=== PATIENT | female | born 1985 | race Caucasian/White ===

== ENCOUNTER → 2016-07-25 | Outpatient (CLI) | payer OTHER ==
[~2016-07-25] MED LIST: ACET-1256 PO; ASCO100T4 PO; CHOL100027 PO; LYSI100010 PO; MULT-506 PO; OREGCAP PO; OXYC-57 PO; PRENTAB26 PO; PRLSR20 PO; QUET5TAB PO
[2016-07-25 12:10] LABS: BASO % 0.5 %; BASO ABS # 0.04 K/uL (0-0.2); COMPLETE YES; EOS % 1.3 %; HEMATOCRIT 36.9 % (37-47); IG% 0.3 %; LYMPH % 34.2 %; LYMPH ABS # 2.56 K/uL (1.2-3.4); MEAN CELL VOLUME 80.7 fL (80-100); MEAN CORPUSCULAR HEMOGLOBIN 27.8 pg (25-34); MEAN CORPUSCULAR HGB CONC 34.4 g/dl (32-36); MEAN PLATELET VOLUME 9.9 fL (7.4-10.4); MONO % 7.9 %; NEUT % 55.8 %; PLATELET COUNT 315 K/uL (130-400); RED BLOOD COUNT 4.57 M/uL (4.2-5.4); WHITE BLOOD COUNT 7.49 K/uL (4.8-10.8)
[2016-07-25 12:21] LABS: ALT/SGPT 34 U/L (12-78); AST/SGOT 16 U/L (15-37); BLOOD UREA NITROGEN 9 mg/dl (7-18); BUN/CREATININE RATIO 12.4 (10-20); CALCIUM 8.6 mg/dl (8.5-10.1); CARBON DIOXIDE 28 mmol/L (21-32); CHLORIDE 105 mmol/L (98-107); CHOLESTEROL 225 mg/dl (0-200); CREATININE 0.71 mg/dl (0.60-1.20); GLUCOSE 96 mg/dl (70-99); POTASSIUM 4.2 mmol/L (3.5-5.1); SODIUM 141 mmol/L (136-145); TRIGLYCERIDES 287 mg/dl (0-150); VERY LOW DENSITY LIPOPROT CALC 57 mg/dl
[2016-07-25 12:31] LABS: ALB/GLOB RATIO 1.4 (0.9-2); ALKALINE PHOSPHATASE 71 U/L (45-117); CHOLESTEROL/HDL RATIO 6.6; HDL CHOLESTEROL 34 mg/dl; LDL CHOLESTEROL CALCULATED 134 mg/dl
== END | disposition home or self-care (01) ==
LOC: C.LABBFT 09:43
PROVIDERS: ATTEND Internal Medicine
DX: Z00.00 Encounter for general adult medical examination without abnormal findings (principal); R53.83 Other fatigue; N92.6 Irregular menstruation, unspecified

== ENCOUNTER 2016-11-09 07:38 | Emergency (ER) | payer OTHER ==
[~2016-11-09] VITALS: Ht 157.5 cm; Wt 70.9 kg
[~2016-11-09 07:38] MED LIST changes: -ASCO100T4 PO; -CHOL100027 PO; -LYSI100010 PO; -MULT-506 PO; -OREGCAP PO; -OXYC-57 PO; -PRLSR20 PO
[2016-11-09 07:42] VITALS: TEMP 37.2; Ht 157.5 cm; Wt 70.9 kg
[2016-11-09] MEDS ORDERED: SODIUM CHLORIDE 0.9% 1000ML 1,000 ML IV STA (07:52)
[2016-11-09] MEDS ORDERED: MoRPHine SULFATE 4 MG/ML 1 ML CARP\\VIAL IV STA ×3 (07:52→15:06)
[2016-11-09] MEDS ORDERED: ONDANSETRON INJ 2 MG/ML 2 ML VIAL IV STA (07:52)
--- NOTE | 2016-11-09 07:59 | EMERGENCY ROOM VISIT NOTE ---
History First contact with patient: 07:44 Chief Complaint: ABDOMINAL PAIN Stated Complaint: N/V, SEVERE ABD PAIN History of Present Illness The patient is a 31 year old female who presents to the Emergency Room via private vehicle accompanied by with complaints of "nausea, vomiting, severe abdominal pain". The patient states that around 6:30 AM, she started to feel as though she had to have a bowel movement, and he been taking Colace therefore had a bowel movement that was normal for her, however afterwards developed severe pain in the suprapubic abdominal region that radiates to the inferior quadrants. She rated the pain initially as a 10/10, however it has decreased to a 7/10. She states that she has vomited since the event. She notes last night she did feel a temperature fluctuations, and clammy. She does note that her had diarrhea earlier in the week. No other close contacts with similar symptoms. She denies any history of abdominal surgeries, chance of , chest pain, shortness of breath, blood in the bowel movement, vaginal discharge, vaginal pain or dysuria. Review of Systems A complete 10-point Review of Systems was discussed with the patient, with pertinent positives and negatives listed in the History of Present Illness. All remaining Review of Systems questions can be considered negative unless otherwise specified. Past Medical/Surgical History Medical Problems: (1) Bipolar disorder (2) Bronchitis (3) Thrush Social History Smoking Status: Former Smoker Alcohol Use: occasionally Drug Use: none Marital Status: in relationship Housing Status: lives with significant other Occupation Status: employed Current/Historical Medications Scheduled Ascorbic Acid (Vitamin C), 100 MG PO DIRECTED Cholecalciferol (Vitamin D 1000 Unit), 1,000 INTER.UNIT PO DIRECTED Lysine Hcl (Lysine), 1,000 MG PO DAILY Multivitamin (Multivitamin), 1 TAB PO DAILY Omeprazole (Prilosec), 20 MG PO QAM Oregano (Oil Of Oregano), 1,500 MG PO 3XWK Scheduled PRN Oxycodone/Acetaminophen 5MG/325MG (Percocet 5MG/325MG), 1-2 TABS PO Q6 PRN for Pain Allergies Coded Allergies: Codeine (Verified Allergy, Unknown, /, 09/05/15) Physical Exam Vital Signs Date Time Temp Pulse Resp B/P (MAP) Pulse Ox O2 Delivery O2 Flow Rate FiO2 11/09/16 15:28 83 16 118/83 99 Room Air 11/09/16 14:08 76 20 127/75 98 Room Air 11/09/16 12:02 97 16 110/74 99 Room Air 11/09/16 10:07 97 18 118/78 99 Room Air 11/09/16 07:42 37.2 101 20 135/91 99 Room Air Physical Exam VITAL SIGNS - Vital signs and nursing notes were reviewed. Patient is afebrile , slightly hypertensive at 135/91, tachycardic. 101 bpm, and is saturating well on room air 99%. GENERAL -31-year-old female appearing her stated age who is in no acute distress. Communicates well with provider and answers questions appropriately. SKIN - Without rashes. HEAD - NC/AT. LUNGS - Chest wall symmetric without accessory muscle use, intercostals retractions, or central cyanosis. Normal vesicular breath sounds CTA B/L. No wheezes, rales, or rhonchi appreciated. CARDIAC - RRR with S1/S2. No murmur, rubs, or gallops appreciated. ABDOMEN - Abdominal contour without pulsations or visible masses. BS normoactive all four quadrants. There is tenderness in the suprapubic region and radiates to the quadrants. There is referred tenderness from the upper quadrants to the lower quadrants. No palpable masses, hepatosplenomegaly, or ascites noted. EXTREMITIES - No clubbing or peripheral cyanosis. No pretibial edema present. PELVIC EXAM: The patient's nurse was present to assist with exam, and security operations manager. The patient was educated upon what her pelvic exam was, and she was offered to decline. Patient did not decline. I explained to her the pelvic exam. The patient was prepared and positioned for best examination. Patient was positioned by nurse. The external genitalia, mons pubis, labia majora, labia minora, clitoris, urethral meatus, Bartholin's glands, perineum, and anus were within normal limits. The speculum was held then a 45 angle and properly lubricated, the speculum was inserted without difficulty to the depth of the cervix. Speculum was then open slowly. Cervix was identified. The cervix was within normal limits and did not display any purulent discharge nor was erythematous. The speculum was then closed and removed without difficulty. I then explained to the patient that I was in a perform a bimanual pelvic examination. I then introduced the index finger into the vaginal vault, palpated the cervix and cervical os and noted no abnormalities. The uterine body, apex and fundus were then palpated and were within normal limits, and position. The ovaries were then palpated with my left hand pressing over the lower quadrants of the abdomen and my right index finger pressing in the region of the ovary with no abnormal findings. Discomfort was appreciated suprapubically. Patient did not experience any discomfort. The exam was concluded. Medical Decision & Procedures ER Provider Diagnostic Interpretation: PELVIC COMPLETE NON OB HISTORY: 31 years-old Female Abdominal pain COMPARISON: CT abdomen and pelvis of same day, pelvic ultrasound 09/05/2015 TECHNIQUE: Multiple real-time sonographic images of the deep pelvic structures were obtained transabdominally and transvaginally assessing grayscale appearance, color and spectral flow. FINDINGS: Transabdominal: Anteflexed uterus measures 7.4 x 3.3 x 4.7 cm. Moderate amount of echogenic free fluid is seen within the pelvis. There is a mixed echogenic and hypoechoic lesion superior to the uterus suggesting left ovarian lesion, 5.4 x 4.1 x 5.5 cm. Structure which appears to be the left ovary contiguous with this lesion measures 4.0 x 1.8 x 4.4 cm with peripheral follicles. Arterial inflow and venous outflow was documented to the left ovary. Transvaginal: There are small nabothian cysts present. The endometrium is homogeneous, 0.6 cm. No focal myometrial mass lesion is identified. The right ovary measures 3.2 x 3.6 x 2.0 cm with normal-appearing follicles present. Arterial inflow and venous outflow is present within the right ovary. Large complex echogenicity lesion of the left adnexum is again seen, 4.4 x 4.8 x 4.3 cm. Large amount of complex free pelvic fluid is noted. Arterial inflow and venous outflow is documented within the left ovary. IMPRESSION: 1. Large complex echogenic and cystic lesion of the left adnexum measuring up to 5.5 cm suggests ruptured left ovarian hemorrhagic cyst with moderate amount of associated hemoperitoneum. 2. No evidence of left ovarian torsion. 2. Unremarkable sonographic appearance of the uterus, endometrium and right ovary. The above report was generated using voice recognition software. It may contain grammatical, syntax or spelling errors. Electronically signed by: James Lutz M.D. 11/09/2016 1:07 PM Dictated Date/Time: 11/09/2016 12:51 PM ABD/PELVIS IV AND ORAL CONT HISTORY: 31 years-old Female Suprapubic abdominal pain COMPARISON: CT 10/20/2013 TECHNIQUE: Multiple axial CT images of the abdomen and pelvis were obtained following the intravenous administration of 92 mL Optiray 320. Oral contrast also used. FINDINGS: The imaged lung bases are clear. No pneumoperitoneum is identified. Inferior cardiac chambers are unremarkable. The liver, spleen, gallbladder, pancreas and adrenal glands appear normal. The bilateral kidneys, ureters and urinary bladder are also within normal limits. Uterus and right adnexum appears unremarkable. There is a large mixed attenuating structure with apparent layering hemorrhagic debris, 5.7 x 4.3 x 4.4 cm within the region of the left adnexum/anterior left hemipelvis. There is a considerable amount of blood products seen within the pelvis with trace ascites tracking along the pericolic gutters and perihepatic space. Normal appearing left ovary is not identified. The abdominal aorta is normal in both course and caliber. There is no bulky adenopathy identified. There is no bowel obstruction. Mild to moderate degree of formed stool is present throughout the colon. The appendix is not definitely seen, however no secondary evidence of acute appendicitis. Soft tissues are unremarkable. Bones appear intact. IMPRESSION: 1. Mixed fluid and hemorrhagic attenuating lesion of the left adnexa measuring up to 5.7 cm suggests hemorrhagic cyst with moderate amount of associated hemoperitoneum. Further evaluation with dedicated pelvic ultrasound is recommended to exclude ovarian torsion. 2. Appendix not visualized. No secondary evidence of acute appendicitis. The above report was generated using voice recognition software. It may contain grammatical, syntax or spelling errors. Electronically signed by: James Lutz M.D. 11/09/2016 11:07 AM Dictated Date/Time: 11/09/2016 10:56 AM Laboratory Results 11/09/16 14:43 11/09/16 08:05 Test 11/09/16 08:05 11/09/16 08:52 11/09/16 14:43 Immature Granulocyte % (Auto) 0.1 % White Blood Count 7.36 K/uL (4.8-10.8) Red Blood Count 4.93 M/uL (4.2-5.4) 4.51 M/uL (4.2-5.4) Hemoglobin 13.3 g/dL (12.0-16.0) Hematocrit 39.5 % (37-47) Mean Corpuscular Volume 80.1 fL (80-100) 82.0 fL (80-100) Mean Corpuscular Hemoglobin 27.0 pg (25-34) 27.9 pg (25-34) Mean Corpuscular Hemoglobin Concent 33.7 g/dl (32-36) 34.1 g/dl (32-36) Platelet Count 387 K/uL (130-400) Mean Platelet Volume 10.0 fL (7.4-10.4) 10.0 fL (7.4-10.4) Neutrophils (%) (Auto) 60.0 % Lymphocytes (%) (Auto) 29.9 % Monocytes (%) (Auto) 8.4 % Eosinophils (%) (Auto) 1.2 % Basophils (%) (Auto) 0.4 % Neutrophils # (Auto) 4.41 K/uL (1.4-6.5) Lymphocytes # (Auto) 2.20 K/uL (1.2-3.4) Monocytes # (Auto) 0.62 K/uL (0.11-0.59) Eosinophils # (Auto) 0.09 K/uL (0-0.5) Basophils # (Auto) 0.03 K/uL (0-0.2) Immature Granulocyte # (Auto) 0.01 K/uL (0.00-0.02) Anion Gap 7.0 mmol/L (3-11) Est Creatinine Clear Calc Drug Dose 97.6 ml/min Estimated GFR () 119.2 Estimated GFR (Non- 102.9 BUN/Creatinine Ratio 8.1 (10-20) Calcium Level 8.9 mg/dl (8.5-10.1) Magnesium Level 2.3 mg/dl (1.8-2.4) Total Bilirubin 0.3 mg/dl (0.2-1) Aspartate Amino Transf (AST/SGOT) 23 U/L (15-37) Alanine Aminotransferase (ALT/SGPT) 36 U/L (12-78) Alkaline Phosphatase 69 U/L (45-117) Total Protein 7.9 gm/dl (6.4-8.2) Albumin 4.4 gm/dl (3.4-5.0) Globulin 3.5 gm/dl (2.5-4.0) Albumin/Globulin Ratio 1.3 (0.9-2) Lipase 153 U/L (73-393) Human Chorionic Gonadotropin, Qual NEG (NEG) Urine Color YELLOW Urine Appearance CLEAR (CLEAR) Urine pH 7.5 (4.5-7.5) Urine Specific [place] 1.011 (1.000-1.030) Urine Protein NEG (NEG) Urine Glucose (UA) NEG (NEG) Urine Ketones NEG (NEG) Urine Occult Blood NEG (NEG) Urine Nitrite NEG (NEG) Urine Bilirubin NEG (NEG) Urine Urobilinogen NEG (NEG) Urine Leukocyte Esterase MODERATE (NEG) Urine WBC (Auto) 10-30 /hpf (0-5) Urine RBC (Auto) 0-4 /hpf (0-4) Urine Hyaline Casts (Auto) 0 /lpf (0-5) Urine Epithelial Cells (Auto) 10-20 /lpf (0-5) Urine Bacteria (Auto) NEG (NEG) RDW Standard Deviation 37.0 fL (36.4-46.3) RDW Coefficient of Variation 12.5 % (11.5-14.5) Medications Administered Medications (Trade) Dose Ordered Sig/Scottie Route Start Time Stop Time Status Last Admin Dose Admin Sodium Chloride 1,000 ml @ 999 mls/hr Q1H1M STAT IV 11/09/16 07:52 11/09/16 08:52 DC 11/09/16 07:52 999 MLS/HR Morphine Sulfate (MoRPHine SULFATE INJ) 4 mg NOW STAT IV 11/09/16 07:52 11/09/16 07:55 DC 11/09/16 08:15 4 MG Ondansetron HCl (Zofran Inj) 4 mg NOW STAT IV 11/09/16 07:52 11/09/16 07:55 DC 11/09/16 08:15 4 MG Morphine Sulfate (MoRPHine SULFATE INJ) 4 mg NOW STAT IV 11/09/16 12:46 11/09/16 12:47 DC 11/09/16 12:54 4 MG Morphine Sulfate (MoRPHine SULFATE INJ) 4 mg NOW STAT IV 11/09/16 15:06 11/09/16 15:07 DC 11/09/16 15:28 4 MG Medical Decision Patient was seen and evaluated as above. After obtaining a thorough history and physical examination IV access was initiated and the above workup was performed. Patient presents to us today with abdominal pain since 6:30 AM this morning. The patient apparently felt a sensation as if she had to defecate, after defecating developed severe suprapubic abdominal pain radiating to her bilateral inferior quadrants. She has had no previous abdominal surgeries. Upon presentation her vital signs are stable, she is afebrile and well- appearing. Secondary to the degree of pain subjectively and objectively noted, I believe that a CT scan of the abdomen and pelvis with IV and oral contrast is warranted. She was given 4 g of morphine and 4 mg of Zofran for her pain and nausea. She was given a liter of normal saline. CBC reveals no leukocytosis or anemia. CMP is unremarkable for acute process. Serum is negative. Urine does reveal white blood cells and leukocyte esterase, but there are some epithelial cells. Patient is asymptomatic for urinary complaints therefore I will defer for culture. Patient was given morphine 4 mg 2 then. I spoke with the on-call REPATCHER, Dr. Pinzon I recommended repeating an H&H. This was done and revealed a hemoglobin decrease of 0.7 and a white blood cell increased from 7.36-13.48. Patient was reevaluated and was feeling less pain, and minimal pain at rest. Benefits versus risk of staying in the hospital versus going home was discussed, and the decision was made to discharge the patient home as her vital signs are stable. She is to return with any worsening. I do believe she is stable for outpatient management. The patient is to call to follow-up with the [facility] service. She is to return here if worsening. Patient was thoroughly educated that if she worsens she certainly is to return, as the cyst could continue to bleed. She was educated upon worrisome symptoms which to return, had questions or discharge, and was discharged home in good condition. In evaluation treatment this patient following differential diagnoses were entertained: Hemorrhagic cyst, appendicitis, epiploic appendicitis, diverticulitis, UTI, among others. Patient was informed that she may be called when the urine culture results are in. At that point she may be started on antibiotic. I was notified by the pharmacist at 4:50 PM, that the patient was NOT able to fill the prescription at the [facility] pharmacy on [address], as there was an emergency at that store today. This was confirmed. I canceled the prescription for that pharmacy, and sent to [facility] This is the other [facility] location. Impression Primary Impression: Hemorrhagic cyst of left ovary Departure Information Dispostion Home / Self-Care Condition GOOD Prescriptions Oxycodone/Acetaminophen 5MG/325MG (PERCOCET 5MG/325MG) Tab 1-2 TABS PO Q6 Y for Pain, #20 TAB For Initial Treatment Prov: Tima Andersen PA-C 11/09/16 Referrals No Doctor, Assigned (PCP) Torri Pinzon M.D. Patient Instructions My [facility] Additional Instructions You have been treated in the Emergency Department your Abdominal Pain. Laboratory results and imaging studies have ruled out any emergent causes for your abdominal pain which would warrant admission or surgery. You have been prescribed PERCOCET to be used for pain control. This is a narcotic medication. You cannot drive or consume alcohol while on this medicine. This medicine should only be used for pain that cannot be controlled with [id number] pain medicines. For pain control, you can use the following [id number] medicines (if >12 yo): - Regular strength (325mg/tab) Tylenol (acetaminophen) 2 tabs every 4-6 hours as needed. Do not exceed 12 tablets in a 24 hour period. Avoid taking more than 4 grams (4000 mg) of Tylenol per day. This includes any other sources of acetaminophen you may take on a regular basis. PLEASE NO TYLENOL WITH THE PERCOCET IT ALREADY CONTAINS THIS MEDICATION. - Regular strength (200 mg/tab) Advil (ibuprofen) 1-2 tabs every 4-6 hours as needed. Do not exceed a dose of 3200 mg per day. Drink plenty of water and stay well hydrated. As with any trip to the Emergency Department, you should follow-up with your Primary Care Provider from today's visit. Please follow-up with REPATCH[facility], number has been listed above. Please call them as soon as possible. If you develop lightheadedness, chest pain, shortness of breath, please return immediately. Return to the emergency department if your symptoms persist despite treatment plan outlined above or if the following symptoms occur: increased fevers, chills , worsening nausea/vomiting, blood in your stool or urine. Please return to the emergency department with any new/concerning symptoms.
[2016-11-09] MEDS ORDERED: OPTIRAY 320 IV PRN (08:00)
[2016-11-09] MEDS ORDERED: LYSI100010 PO (08:12)
[2016-11-09] MEDS ORDERED: CHOL100027 PO (08:12)
[2016-11-09] MEDS ORDERED: MULT-506 PO (08:12)
[2016-11-09] MEDS ORDERED: ASCO100T PO (08:12)
[2016-11-09] MEDS ORDERED: OREGCAP PO (08:12)
[2016-11-09] MEDS ORDERED: PRLSR20 PO (08:12)
[2016-11-09 08:21] LABS: BASO % 0.4 %; BASO ABS # 0.03 K/uL (0-0.2); COMPLETE YES; EOS % 1.2 %; HEMATOCRIT 39.5 % (37-47); IG% 0.1 %; LYMPH % 29.9 %; MEAN CELL VOLUME 80.1 fL (80-100); MEAN CORPUSCULAR HGB CONC 33.7 g/dl (32-36); MONO % 8.4 %; PLATELET COUNT 387 K/uL (130-400); RED BLOOD COUNT 4.93 M/uL (4.2-5.4); WHITE BLOOD COUNT 7.36 K/uL (4.8-10.8)
[2016-11-09 08:33] LABS: PREG INTERNAL NEGATIVE QC NEG CLEAR BACKGROUND; PREG INTERNAL POSITIVE QC POS CONTROL LINE
[2016-11-09 08:40] LABS: CREATININE 0.77 mg/dl (0.60-1.20)
[2016-11-09 08:41] LABS: BUN/CREATININE RATIO 8.1 (10-20); CALCIUM 8.9 mg/dl (8.5-10.1); MAGNESIUM 2.3 mg/dl (1.8-2.4); POTASSIUM 3.7 mmol/L (3.5-5.1)
[2016-11-09 08:43] LABS: ALB/GLOB RATIO 1.3 (0.9-2)
[2016-11-09 09:13] LABS: URINE APPEARANCE CLEAR (CLEAR); URINE BILIRUBIN NEG (NEG); URINE COLOR YELLOW; URINE NITRITE NEG (NEG); URINE PH 7.5 (4.5-7.5); URINE SPECIFIC GRAVITY 1.011 (1.000-1.030); UROBILINOGEN NEG (NEG); ZZUR CULT IF INDIC CLEAN CATCH YES
[2016-11-09 09:21] LABS: MANUAL MICROSCOPIC REQUIRED? NO; REVIEW REQ? NO
--- NOTE | 2016-11-09 11:08 | DIAGNOSTIC IMAGING REPORT ---
ABD/PELVIS IV AND ORAL CONT HISTORY: 31 years-old Female Suprapubic abdominal pain COMPARISON: CT 10/20/2013 TECHNIQUE: Multiple axial CT images of the abdomen and pelvis were obtained following the intravenous administration of 92 mL Optiray 320. Oral contrast also used. FINDINGS: The imaged lung bases are clear. No pneumoperitoneum is identified. Inferior cardiac chambers are unremarkable. The liver, spleen, gallbladder, pancreas and adrenal glands appear normal. The bilateral kidneys, ureters and urinary bladder are also within normal limits. Uterus and right adnexum appears unremarkable. There is a large mixed attenuating structure with apparent layering hemorrhagic debris, 5.7 x 4.3 x 4.4 cm within the region of the left adnexum/anterior left hemipelvis. There is a considerable amount of blood products seen within the pelvis with trace ascites tracking along the pericolic gutters and perihepatic space. Normal appearing left ovary is not identified. The abdominal aorta is normal in both course and caliber. There is no bulky adenopathy identified. There is no bowel obstruction. Mild to moderate degree of formed stool is present throughout the colon. The appendix is not definitely seen, however no secondary evidence of acute appendicitis. Soft tissues are unremarkable. Bones appear intact. IMPRESSION: 1. Mixed fluid and hemorrhagic attenuating lesion of the left adnexa measuring up to 5.7 cm suggests hemorrhagic cyst with moderate amount of associated hemoperitoneum. Further evaluation with dedicated pelvic ultrasound is recommended to exclude ovarian torsion. 2. Appendix not visualized. No secondary evidence of acute appendicitis. The above report was generated using voice recognition software. It may contain grammatical, syntax or spelling errors. Electronically signed by: James Lutz M.D. 11/09/2016 11:07 AM Dictated Date/Time: 11/09/2016 10:56 AM
--- NOTE | 2016-11-09 13:08 | DIAGNOSTIC IMAGING REPORT ---
PELVIC COMPLETE NON OB HISTORY: 31 years-old Female Abdominal pain COMPARISON: CT abdomen and pelvis of same day, pelvic ultrasound 09/05/2015 TECHNIQUE: Multiple real-time sonographic images of the deep pelvic structures were obtained transabdominally and transvaginally assessing grayscale appearance, color and spectral flow. FINDINGS: Transabdominal: Anteflexed uterus measures 7.4 x 3.3 x 4.7 cm. Moderate amount of echogenic free fluid is seen within the pelvis. There is a mixed echogenic and hypoechoic lesion superior to the uterus suggesting left ovarian lesion, 5.4 x 4.1 x 5.5 cm. Structure which appears to be the left ovary contiguous with this lesion measures 4.0 x 1.8 x 4.4 cm with peripheral follicles. Arterial inflow and venous outflow was documented to the left ovary. Transvaginal: There are small nabothian cysts present. The endometrium is homogeneous, 0.6 cm. No focal myometrial mass lesion is identified. The right ovary measures 3.2 x 3.6 x 2.0 cm with normal-appearing follicles present. Arterial inflow and venous outflow is present within the right ovary. Large complex echogenicity lesion of the left adnexum is again seen, 4.4 x 4.8 x 4.3 cm. Large amount of complex free pelvic fluid is noted. Arterial inflow and venous outflow is documented within the left ovary. IMPRESSION: 1. Large complex echogenic and cystic lesion of the left adnexum measuring up to 5.5 cm suggests ruptured left ovarian hemorrhagic cyst with moderate amount of associated hemoperitoneum. 2. No evidence of left ovarian torsion. 2. Unremarkable sonographic appearance of the uterus, endometrium and right ovary. The above report was generated using voice recognition software. It may contain grammatical, syntax or spelling errors. Electronically signed by: James Lutz M.D. 11/09/2016 1:07 PM Dictated Date/Time: 11/09/2016 12:51 PM
[2016-11-09 14:53] LABS: MEAN CORPUSCULAR HEMOGLOBIN 27.9 pg (25-34); MEAN CORPUSCULAR HGB CONC 34.1 g/dl (32-36); PLATELET COUNT 311 K/uL (130-400); RED BLOOD COUNT 4.51 M/uL (4.2-5.4); WHITE BLOOD COUNT 13.48 K/uL (4.8-10.8)
[2016-11-09 15:28] VITALS: BP 118/83; PULSE 83; O2SAT 99
[2016-11-09] MEDS ORDERED: OXYC-57 PO ×2 (15:32→16:57)
--- NOTE | 2016-11-09 17:10 | Pharmacy Progress Note ---
ED Pharmacist Progress Note Date of Service: Nov 09, 2016. Patient's called stating they were not able to get the Rx for Percocet filled at the [facility] on [address] because the store was closed today. I did call the [facility] and received confirmation that the pharmacy was in fact closed today due to an emergency. The patient's was requesting the Rx be sent to the [facility] on [address] instead. I contacted the [facility] location ([phone]) and spoke with the [facility] working there, Stew Cruz. He confirmed the other location was closed today. I spoke w/ Tima DELGADO who sent a new Rx for Percocet to the [facility]. I spoke with [facility] Janneth Cruz and requested he confirm the Rx for Percocet sent to the [facility] location is cancelled. He stated he works there tomorrow and would make sure the Rx is cancelled.
== END 2016-11-09 15:56 | disposition home or self-care (01) ==
LOC: C.EDB 07:39 → C.EDA 15:56
DX: N83.202 Unspecified ovarian cyst, left side (principal); F31.9 Bipolar disorder, unspecified; Z87.891 Personal history of nicotine dependence; Z79.899 Other long term (current) drug therapy

== ENCOUNTER 2025-02-06 07:21 | Inpatient (IN) ==
[2025-02-06] MEDS ORDERED: OXYTOCIN 30 UNITS/NSS 30 UNITS/500 ML BAG IV PRN (08:17)
[2025-02-06] MEDS ORDERED: LIDOCAINE 1% LOCAL 20 ML VIAL INFIL PRN (08:17)
[2025-02-06 09:24] LABS: Hematocrit (blood only) 34.6 % (37.0-47.0); Hemoglobin 11.4 g/dl (12.0-16.0); Mean Corpuscular Hemoglobin 27.7 pg (25.0-34.0); Mean Corpuscular Volume 84.0 fL (80.0-100.0); Platelet Count 290 K/uL (130-400); RDW Standard Deviation 39.7 fL (36.4-46.3); Red Blood Count 4.12 M/uL (4.20-5.40); White Blood Count 14.37 K/ul (4.8-10.8)
[2025-02-06] MEDS: LACTATED RINGER'S 1,000 ML IV PRN (11:32)
[2025-02-06] MEDS ORDERED: LIDOCAINE 2% MPF LOCAL 5 ML VIAL EPI PRN (11:50)
[2025-02-06] MEDS ORDERED: NALBUPHINE HCL INJ 10 MG/ML AMP IV PRN (11:50)
[2025-02-06] MEDS ORDERED: BUPIVACAINE 0.25% PF 30 ML VIAL EPI PRN (11:50)
[2025-02-06] MEDS ORDERED: ROPIVACAINE 0.5% PF 5 MG/ML 20 ML VIAL EPI PRN (11:50)
[2025-02-06] MEDS ORDERED: NALOXONE HCL 1 MG in SODIUM CHLORIDE 0.9% 1,000 ML IV PRN (11:50)
[2025-02-06] MEDS ORDERED: NALOXONE HCL 0.4 MG/1 ML VIAL/CARP IV PRN (11:50)
[2025-02-06] MEDS ORDERED: SODIUM CHLORIDE 0.9% PF INJ 10 ML VIAL EPI PRN (11:50)
--- NOTE | 2025-02-06 11:50 | Anesthesiology Consultation ---
Date of Service February 06, 2025 Assessment & Plan ASA ASA2 Proposed Anesthesia Anesthesia Type: Labor Epidural Risk / Benefits Reviewed With: PT / POA / Parent / Guardian, Accepts Plan and Informed Consent Obtained History Height/Weight Height: 5 ft 2 in Weight: 77.564 kg Allergies Allergy/AdvReac Type Severity Reaction Status Date / Time Quinolones AdvReac Mild rash Verified 02/06/25 07:47 Medications Home Medications Medication Instructions Recorded Confirmed Last Taken PNV no.[id number] 1 tab PO DAILY 07/15/24 02/06/25 02/05/25 [ Gummies] magnesium glycinate 350 mg PO DAILY 07/15/24 02/02/25 02/05/25 20:00 acetone (urine) test (Ketone Urine #50 ea 09/25/24 02/02/25 Unknown Test strips) blood sugar diagnostic (OneTouch #100 ea 09/25/24 02/02/25 Unknown Verio test strips) blood-glucose meter (OneTouch #1 ea 09/25/24 02/02/25 Unknown Verio Flex Meter) lancets 33 gauge (OneTouch Delica #100 ea 09/25/24 02/02/25 Unknown Plus Lancet) pen needle, diabetic 32 gauge x #100 ea 11/20/24 02/02/25 Unknown 5/32" Dexcom G7 Sensor (blood-glucose #3 ea 12/14/24 02/02/25 Unknown sensor) docusate sodium 100 mg capsule 100 mg PO DAILY 02/06/25 02/06/25 Unknown (Colace) insulin NPH isoph U-100 human 100 35 unit subcut .at bed time 02/06/25 02/05/25 22:00 unit/mL (3 mL) subcutaneous pen (Novolin N FlexPen) Active Medications Generic Name Dose Route Start Last Admin Trade Name Freq PRN Reason Stop Dose Admin Lactated Ringer's 1,000 mls @ 125 mls/hr 02/06/25 08:17 02/06/25 12:31 Lr IV 02/08/25 08:16 125 mls/hr .Q8H PRN Administration L&D Protocol Protocol Past Medical History Medical History Cold sore last cold sore- last outbreak "couple years" History of hysterosalpingogram 2019 Miscarriage 2015- NO intervention needed History of chicken pox as a child Otitis externa of right ear ADHD (attention deficit hyperactivity disorder) No meds Tricompartment osteoarthritis of left knee Multiple nevi Impaired fasting glucose GERD (gastroesophageal reflux disease) Depression no meds Exercise / Class Metabolic Activity II 4-5 Yardwork/Stairs/Walk up hill Past Family History Family History Mother Breast cancer Diabetes High cholesterol Myeloma Grandmother Colorectal cancer Diabetes Lung cancer Grandfather Myocardial infarction Diabetes Father Prostate cancer Hypertension High cholesterol Aunt Diabetes Denies family history of Ovarian cancer Past Surgical History Surgical History Status post wisdom tooth extraction as teenager History of surgery on arm R humerus History of repair of ACL x2 Past Anesthesia History No Hx of Anesthesia Complications and No Family Hx of Anesthesia Complications History of PONV No Hx of PONV and No Hx of Motion Sickness Social History Smoking Status: Former smoker Do You Dip or Chew Tobacco: No Hx Alcohol Use: No Alcohol type: wine Hx Substance Use: No substance use type: does not use Review of Systems denies fever/cough/ colds/ chest pain/ SOB/ MARIO ALBERTO denies MARIO ALBERTO Physical Exam Vital Signs Last Vital Signs Temp 36.8 C 02/06/25 11:00 Pulse 90 02/06/25 12:58 Resp 18 02/06/25 07:44 BP 115/68 02/06/25 12:55 Pulse Ox 100 02/06/25 12:58 ENMT Mouth: no TMJ abnormality and no dentition abnormality Thyromental Distance: > or= 3.5 Finger Breadths Mallampati Class: II Neck neck extension not limited Respiratory normal respiratory effort; no respiratory distress Auscultation: lungs clear to auscultation bilaterally Cardiovascular Rate/Rhythm: regular rate and regular rhythm Neurologic moves all extremities Psychiatric Orientation: alert and oriented x 3 Testing Laboratory Results 02/06/25 08:59 02/06/25 02/06/25 12:30 08:56 POC Glucose 96 93
[2025-02-06] MEDS: BUPIVACAINE 0.25% PF 30 ML VIAL ONE (12:26)
[2025-02-06] MEDS: LIDOCAINE 2%/EPINEPHRINE 1:200,000 20 ML PF ONE (12:26)
[2025-02-06] MEDS: fentANYL 2 MCG/ML BUPIVacaine 0.125%-NSS 100ML BAG ONE (12:26)
[2025-02-06] MEDS: SODIUM CHLORIDE 0.9% PF INJ 10 ML VIAL ONE (12:46)
[2025-02-06] MEDS: BUPIVACAINE 0.25% PF 30 ML VIAL EPI STA (12:47)
[2025-02-06] MEDS: LIDOCAINE 2%/EPINEPHRINE 1:200,000 20 ML PF EPI STA (12:47)
[2025-02-06] MEDS: SODIUM CHLORIDE 0.9% PF INJ 10 ML VIAL EPI STA (12:47)
--- NOTE | 2025-02-06 13:39 | History & Physical Report ---
Date of Service February 06, 2025 Assessment & Plan (1) 38 weeks gestation of : (2) PROM (premature rupture of membranes): (3) Insulin controlled gestational diabetes mellitus (GDM) during : Plan pt has been admitted. glucose has been checked, plan q2hr in active labor. will need to add pitocin michael if labor pattern not regular, pt agreeable. fhts categ 1. Admission and Anticipated Discharge Date Admission Date: February 06, 2025 History of Present Illness Chief Complaint: prom Primary Care Provider: Cherelle Freitas MD 39yo at term with prom and then early labor, admitted this am by my colleague. She continues with clear fluid leak and ctx q3-5min and did receive epidural. Comfortable now. PNC c/b GDM on insulin, AMA PNL rhpos, ri, gbs neg. OBH: g1 GYNH: nl paps no stds Allergies Allergy/AdvReac Type Severity Reaction Status Date / Time Quinolones AdvReac Mild rash Verified 02/06/25 07:47 Home Medications Medication Instructions Recorded Confirmed Type PNV no.[id number] 1 tab PO DAILY 07/15/24 02/06/25 History [ Gummies] magnesium glycinate 350 mg PO DAILY 07/15/24 02/02/25 History acetone (urine) test (Ketone Urine #50 ea 09/25/24 02/02/25 Rx Test strips) blood sugar diagnostic (OneTouch #100 ea 09/25/24 02/02/25 Rx Verio test strips) blood-glucose meter (OneTouch #1 ea 09/25/24 02/02/25 Rx Verio Flex Meter) lancets 33 gauge (OneTouch Delica #100 ea 09/25/24 02/02/25 Rx Plus Lancet) pen needle, diabetic 32 gauge x #100 ea 11/20/24 02/02/25 Rx 5/32" Dexcom G7 Sensor (blood-glucose #3 ea 12/14/24 02/02/25 Rx sensor) docusate sodium 100 mg capsule 100 mg PO DAILY 02/06/25 02/06/25 History (Colace) insulin NPH isoph U-100 human 100 35 unit subcut .at bed time 02/06/25 History unit/mL (3 mL) subcutaneous pen (Novolin N FlexPen) Patient History Medical History Cold sore last cold sore- last outbreak "couple years" History of hysterosalpingogram 2019 Miscarriage 2015- NO intervention needed History of chicken pox as a child Otitis externa of right ear ADHD (attention deficit hyperactivity disorder) No meds Tricompartment osteoarthritis of left knee Multiple nevi Impaired fasting glucose GERD (gastroesophageal reflux disease) Depression no meds Surgical History Status post wisdom tooth extraction as teenager History of surgery on arm R humerus History of repair of ACL x2 Family History Mother Breast cancer Diabetes High cholesterol Myeloma Grandmother Colorectal cancer Diabetes Lung cancer Grandfather Myocardial infarction Diabetes Father Prostate cancer Hypertension High cholesterol Aunt Diabetes Denies family history of Ovarian cancer Social History (Updated 02/06/25 @ 07:47 by Debbi Haq RN) Smoking Status: Former smoker Tobacco Type: Cigarettes Age Started Using Tobacco: 24; Age Quit Using Tobacco: 31; packs per day: 1; Second Hand Exposure: Yes; Do You Dip or Chew Tobacco: No; Hx Alcohol Use: No Hx Substance Use: No Preferred Language: [place] Citizen Communication Ability: Effective Visual Impairment: Limited Hearing Ability: Normal Plaster Molder Required: No Beliefs That Will Affect Care: None marital status: marital status details: Buster Amin (50) [phone] Current Living Situation: Spouse Current Living Situation Comment: lives with spouse, cats-spouse changing litter current occupational status: employed current occupation: RN [employer] Feels Safe at Home: Yes Safety Concerns: Feels Safe At This Time Childhood Exposure to Second-Hand Smoke: No Diet: low carbohydrate Diet Comment: Athletic caffeine: Yes (Coffee and soda (stops by 1-2pm)) during the past year weight has: remained stable Dental Care, Regularly: No Physical Activity Frequency: Daily Physical Activity Frequency Comment: cyclist, yoga, walking Seatbelt Use: always Sunscreen Use: Yes Assistive Devices: Contacts and Glasses Review of Systems as per Subjective / HPI Physical Exam Constitutional: WD/WN, vitals as above Musculoskeletal: no edema Neurologic: grossly normal Psychiatric: A+Ox3, euthymic affect Genitourinary: Manual OB Exam: + cervical dilation 3 cm, + cervical effacement 80% and + station -1 OB Exam Monitor Tracing: + external FHT monitor used, + external uterine monitor used (q3-5), + category I and + normal FHT variability Results & Data Vital Signs (Past 12 Hours) Vital Signs Temp Pulse Resp BP Pulse Ox 02/06/25 13:33 102 H 100 02/06/25 13:28 95 H 100 02/06/25 13:26 97 H 108/65 02/06/25 13:23 93 H 100 02/06/25 13:18 100 H 100 02/06/25 13:15 18 02/06/25 13:13 93 H 100 02/06/25 13:10 106 H 117/72 02/06/25 13:08 96 H 100 02/06/25 13:04 91 H 112/67 02/06/25 13:03 98 H 100 02/06/25 13:00 18 02/06/25 13:00 98.8 F 93 H 115/67 02/06/25 12:58 90 100 02/06/25 12:55 90 115/68 02/06/25 12:53 99 H 100 02/06/25 12:49 99 H 112/67 02/06/25 12:48 91 H 100 02/06/25 12:45 16 02/06/25 12:44 96 H 115/70 02/06/25 12:43 96 H 100 02/06/25 12:41 85 123/77 02/06/25 12:38 92 H 100 02/06/25 12:34 100 H 118/72 02/06/25 12:33 96 H 100 02/06/25 12:32 91 H 116/70 02/06/25 12:30 18 02/06/25 12:30 102 H 114/67 02/06/25 12:28 100 02/06/25 12:28 93 H 02/06/25 12:28 90 114/65 02/06/25 12:26 88 110/58 L 02/06/25 12:24 97 H 144/60 H 02/06/25 12:23 94 H 100 02/06/25 12:18 91 H 100 02/06/25 12:17 94 H 93 02/06/25 12:13 92 H 100 02/06/25 12:08 87 100 02/06/25 12:03 80 100 02/06/25 12:02 85 126/78 02/06/25 11:58 90 100 02/06/25 11:53 94 H 100 02/06/25 11:48 90 100 02/06/25 11:43 80 100 02/06/25 11:00 98.2 F 02/06/25 09:00 98.4 F 02/06/25 07:44 97.9 F 18 02/06/25 07:34 76 126/83 Coding Level of Care Code None Diagnoses 38 weeks gestation of Z3A.38 PROM (premature rupture of membranes) O42.90 Insulin controlled gestational diabetes mellitus (GDM) during O24.414
[2025-02-06] MEDS: OXYTOCIN 30 UNITS/NSS 30 UNITS/500 ML BAG IV PRN (13:55)
[2025-02-06] MEDS: ONDANSETRON INJ 2 MG/ML 2 ML VIAL IV PRN (18:20)
[2025-02-06] MEDS: fentANYL 2 MCG/ML BUPIVacaine 0.125%-NSS 100ML BAG EPI PRN (19:01)
--- NOTE | 2025-02-06 22:28 | Labor Progress Brief Note ---
Date of Service February 06, 2025 Subjective pt being repositioned by nursing, she was examined by nursing and cx 7-8cm Assessment & Plan (1) 38 weeks gestation of : (2) PROM (premature rupture of membranes): Plan will need to increase pit to keep ctx pattern adequate. some cx change per nurse. fhts categ 1. Admission and Anticipated Discharge Date Admission Date: February 06, 2025 Physical Exam Constitutional: WD/WN, vitals as above Genitourinary: Manual OB Exam: + cervical dilation (7-8 per nurse) OB Exam Monitor Tracing: + external FHT monitor used, + external uterine monitor used (q2-4 pit at 13. ), + category I and + normal FHT variability Results & Data Vital Signs (Past 12 Hours) Vital Signs Temp Pulse Resp BP Pulse Ox 02/06/25 22:23 87 100 02/06/25 22:18 98 H 99 02/06/25 22:16 93 H 106/62 02/06/25 22:13 92 H 98 02/06/25 22:11 85 107/62 02/06/25 22:08 93 H 99 02/06/25 22:06 83 108/62 02/06/25 22:03 86 100 02/06/25 22:01 88 110/66 02/06/25 22:00 16 02/06/25 22:00 16 02/06/25 21:58 90 100 02/06/25 21:57 88 110/66 02/06/25 21:53 86 100 02/06/25 21:50 84 90 02/06/25 21:48 85 100 02/06/25 21:46 92 H 107/60 02/06/25 21:43 92 H 100 02/06/25 21:41 85 110/62 02/06/25 21:38 100 H 100 02/06/25 21:36 113 H 114/63 02/06/25 21:33 107 H 99 02/06/25 21:32 93 H 116/65 02/06/25 21:30 16 02/06/25 21:30 98.6 F 16 02/06/25 21:28 92 H 98 02/06/25 21:26 99 H 114/67 02/06/25 21:23 94 H 97 02/06/25 21:22 89 114/66 02/06/25 21:18 89 98 02/06/25 21:16 89 121/65 02/06/25 21:13 89 98 02/06/25 21:11 85 121/66 02/06/25 21:08 87 99 02/06/25 21:06 88 121/71 02/06/25 21:03 88 98 02/06/25 21:00 86 16 137/78 02/06/25 20:58 91 H 131/79 98 02/06/25 20:56 94 H 132/79 02/06/25 20:54 90 130/70 02/06/25 20:53 93 H 98 02/06/25 20:52 93 H 135/71 02/06/25 20:51 88 134/77 02/06/25 20:48 91 H 97 02/06/25 20:43 90 97 02/06/25 20:40 80 129/73 02/06/25 20:38 85 97 02/06/25 20:33 85 98 02/06/25 20:30 16 02/06/25 20:30 16 02/06/25 20:28 86 99 02/06/25 20:26 85 132/75 02/06/25 20:23 88 98 02/06/25 20:18 99 H 100 02/06/25 20:13 93 H 99 02/06/25 20:11 90 134/74 02/06/25 20:08 89 100 02/06/25 20:03 101 H 100 02/06/25 20:00 16 02/06/25 20:00 16 02/06/25 19:58 88 100 02/06/25 19:56 93 H 115/61 02/06/25 19:53 102 H 100 02/06/25 19:48 89 100 02/06/25 19:43 93 H 99 02/06/25 19:40 90 107/60 02/06/25 19:38 98 H 100 02/06/25 19:33 92 H 100 02/06/25 19:28 89 100 02/06/25 19:26 88 115/57 L 02/06/25 19:23 88 100 02/06/25 19:18 91 H 100 02/06/25 19:15 16 02/06/25 19:15 98.1 F 16 02/06/25 19:13 100 H 100 02/06/25 19:10 92 H 132/73 02/06/25 19:08 96 H 99 02/06/25 19:03 97 H 100 02/06/25 19:00 16 02/06/25 19:00 16 02/06/25 18:58 103 H 100 02/06/25 18:56 95 H 84 L 02/06/25 18:55 90 128/67 02/06/25 18:53 96 H 100 02/06/25 18:48 91 H 100 02/06/25 18:43 95 H 77 L 02/06/25 18:41 91 H 127/66 02/06/25 18:38 92 H 100 02/06/25 18:33 93 H 100 02/06/25 18:31 100 H 90 02/06/25 18:30 16 02/06/25 18:30 16 02/06/25 18:28 92 H 100 02/06/25 18:23 95 H 100 02/06/25 18:18 94 H 100 02/06/25 18:13 90 100 02/06/25 18:08 94 H 100 02/06/25 18:03 87 100 02/06/25 18:00 18 02/06/25 18:00 18 02/06/25 17:58 98 H 100 02/06/25 17:55 94 H 124/70 02/06/25 17:53 94 H 97 02/06/25 17:48 103 H 99 02/06/25 17:43 89 99 02/06/25 17:40 89 127/68 02/06/25 17:38 91 H 99 02/06/25 17:33 96 H 100 02/06/25 17:30 16 02/06/25 17:30 98.6 F 16 02/06/25 17:28 89 100 18 17:27 87 124/71 02/06/25 17:23 93 H 99 18 17:18 92 H 98 02/06/25 17:13 87 98 18 17:10 86 105/57 L 02/06/25 17:08 94 H 99 02/06/25 17:03 85 98 18 17:00 16 02/06/25 17:00 16 02/06/25 16:58 90 99 02/06/25 16:55 96 H 106/58 L 02/06/25 16:53 92 H 99 02/06/25 16:48 88 98 02/06/25 16:43 88 99 02/06/25 16:40 85 102/59 L 02/06/25 16:38 90 98 02/06/25 16:33 92 H 98 02/06/25 16:30 16 02/06/25 16:30 16 02/06/25 16:28 94 H 98 02/06/25 16:25 90 98/53 L 02/06/25 16:23 88 100 02/06/25 16:18 96 H 97 02/06/25 16:13 93 H 98 02/06/25 16:11 93 H 112/55 L 02/06/25 16:08 99 H 99 02/06/25 16:03 98 H 99 02/06/25 16:00 16 02/06/25 16:00 16 02/06/25 15:58 93 H 99 02/06/25 15:55 93 H 109/63 02/06/25 15:53 96 H 99 02/06/25 15:48 94 H 99 02/06/25 15:43 94 H 97 02/06/25 15:38 93 H 100 02/06/25 15:35 16 02/06/25 15:35 98.6 F 16 02/06/25 15:33 106 H 98 02/06/25 15:28 88 99 02/06/25 15:25 90 106/58 L 02/06/25 15:23 88 99 02/06/25 15:18 91 H 100 02/06/25 15:13 84 100 02/06/25 15:10 88 115/59 L 02/06/25 15:08 88 100 02/06/25 15:03 90 99 02/06/25 14:58 92 H 100 02/06/25 14:55 88 110/60 02/06/25 14:53 88 100 02/06/25 14:48 87 100 02/06/25 14:43 95 H 100 02/06/25 14:40 89 108/57 L 02/06/25 14:38 92 H 100 02/06/25 14:33 103 H 100 02/06/25 14:30 20 02/06/25 14:30 20 02/06/25 14:28 91 H 99 02/06/25 14:25 93 H 110/68 02/06/25 14:23 97 H 100 02/06/25 14:18 91 H 99 02/06/25 14:13 93 H 100 02/06/25 14:10 92 H 105/61 02/06/25 14:08 91 H 100 02/06/25 14:03 91 H 100 02/06/25 14:00 18 02/06/25 14:00 18 02/06/25 13:58 93 H 100 02/06/25 13:55 93 H 104/59 L 02/06/25 13:53 96 H 100 02/06/25 13:48 87 99 02/06/25 13:43 91 H 100 02/06/25 13:40 82 90/57 L 02/06/25 13:38 90 100 02/06/25 13:33 102 H 100 02/06/25 13:30 20 02/06/25 13:30 20 02/06/25 13:28 95 H 100 02/06/25 13:26 97 H 108/65 02/06/25 13:23 93 H 100 02/06/25 13:18 100 H 100 02/06/25 13:15 18 02/06/25 13:13 93 H 100 02/06/25 13:10 106 H 117/72 02/06/25 13:08 96 H 100 02/06/25 13:04 91 H 112/67 02/06/25 13:03 98 H 100 02/06/25 13:00 18 02/06/25 13:00 98.8 F 93 H 115/67 02/06/25 12:58 90 100 02/06/25 12:55 90 115/68 02/06/25 12:53 99 H 100 02/06/25 12:49 99 H 112/67 02/06/25 12:48 91 H 100 02/06/25 12:45 16 02/06/25 12:44 96 H 115/70 02/06/25 12:43 96 H 100 02/06/25 12:41 85 123/77 02/06/25 12:38 92 H 100 02/06/25 12:34 100 H 118/72 02/06/25 12:33 96 H 100 02/06/25 12:32 91 H 116/70 02/06/25 12:30 18 02/06/25 12:30 102 H 114/67 02/06/25 12:28 100 02/06/25 12:28 93 H 02/06/25 12:28 90 114/65 02/06/25 12:26 88 110/58 L 02/06/25 12:24 97 H 144/60 H 02/06/25 12:23 94 H 100 02/06/25 12:18 91 H 100 02/06/25 12:17 94 H 93 02/06/25 12:13 92 H 100 02/06/25 12:08 87 100 02/06/25 12:03 80 100 02/06/25 12:02 85 126/78 02/06/25 11:58 90 100 02/06/25 11:53 94 H 100 02/06/25 11:48 90 100 02/06/25 11:43 80 100 02/06/25 11:00 98.2 F Coding Level of Care Code None Diagnoses 38 weeks gestation of Z3A.38 PROM (premature rupture of membranes) O42.90
--- NOTE | 2025-02-07 03:03 | Labor Progress Brief Note ---
Date of Service February 07, 2025 Subjective feeling more pain with ctx. Assessment & Plan (1) 38 weeks gestation of : (2) PROM (premature rupture of membranes): Plan iupc placed due to ? adequate labor pattern with minimal change of cx. fhts categ 1. mvu's appear inadequate, will inc pit max. Admission and Anticipated Discharge Date Admission Date: February 06, 2025 Physical Exam Constitutional: WD/WN, vitals as above Genitourinary: Manual OB Exam: + cervical dilation 8 cm (swollen anterior lip to right), + cervical effacement 100% and + station 0 and + 1 OB Exam Monitor Tracing: + external FHT monitor used, + external uterine monitor used (q3 pit at 20), + intra-uterine pressure catheter used (mvu's will likely be inadequate), + category I and + normal FHT variability Results & Data Vital Signs (Past 12 Hours) Vital Signs Temp Pulse Resp BP Pulse Ox 02/07/25 02:58 90 100 02/07/25 02:53 88 98 02/07/25 02:51 97 H 127/75 02/07/25 02:48 93 H 99 02/07/25 02:43 96 H 98 02/07/25 02:38 93 H 98 02/07/25 02:36 85 124/74 02/07/25 02:33 85 98 02/07/25 02:30 18 02/07/25 02:30 18 02/07/25 02:28 87 97 02/07/25 02:23 88 98 02/07/25 02:22 82 124/71 02/07/25 02:18 91 H 98 02/07/25 02:13 88 99 02/07/25 02:08 92 H 98 02/07/25 02:06 94 H 123/66 02/07/25 02:03 96 H 100 02/07/25 02:00 16 02/07/25 02:00 16 02/07/25 01:58 101 H 99 02/07/25 01:53 99 H 99 02/07/25 01:51 92 H 128/66 02/07/25 01:48 95 H 98 02/07/25 01:43 91 H 97 02/07/25 01:38 95 H 99 02/07/25 01:36 96 H 127/61 02/07/25 01:33 99 H 100 02/07/25 01:30 16 02/07/25 01:30 16 02/07/25 01:28 102 H 97 02/07/25 01:23 94 H 99 02/07/25 01:22 92 H 132/65 02/07/25 01:18 92 H 100 02/07/25 01:13 111 H 100 02/07/25 01:08 90 98 02/07/25 01:07 90 121/72 02/07/25 01:03 96 H 98 02/07/25 01:00 16 02/07/25 01:00 98.6 F 16 02/07/25 00:58 102 H 99 02/07/25 00:53 92 H 99 02/07/25 00:52 94 H 127/68 02/07/25 00:48 98 H 99 02/07/25 00:43 100 H 99 02/07/25 00:38 83 97 02/07/25 00:37 83 98/56 L 02/07/25 00:33 83 95 02/07/25 00:30 16 02/07/25 00:30 16 02/07/25 00:28 85 95 02/07/25 00:23 85 98 02/07/25 00:21 86 109/56 L 02/07/25 00:18 86 97 02/07/25 00:13 82 97 02/07/25 00:08 82 96 02/07/25 00:07 80 100/55 L 02/07/25 00:05 85 94 02/07/25 00:03 83 95 02/07/25 00:00 16 02/07/25 00:00 16 02/06/25 23:58 84 94 02/06/25 23:53 81 95 02/06/25 23:52 81 100/59 L 02/06/25 23:50 91 H 94 02/06/25 23:48 83 95 02/06/25 23:43 80 96 02/06/25 23:38 81 97 02/06/25 23:37 77 104/59 L 02/06/25 23:33 81 96 02/06/25 23:30 16 02/06/25 23:30 16 02/06/25 23:28 79 97 02/06/25 23:23 78 98 02/06/25 23:22 82 104/55 L 02/06/25 23:18 80 96 02/06/25 23:13 82 97 02/06/25 23:08 86 98 02/06/25 23:07 79 97/53 L 02/06/25 23:03 81 98 02/06/25 23:00 16 02/06/25 23:00 98.4 F 16 02/06/25 22:58 81 98 02/06/25 22:53 77 98 02/06/25 22:52 78 98/55 L 02/06/25 22:48 107 H 96 02/06/25 22:43 91 H 97 02/06/25 22:38 90 98 02/06/25 22:36 88 110/66 02/06/25 22:33 89 99 02/06/25 22:30 16 02/06/25 22:30 16 02/06/25 22:28 96 H 99 02/06/25 22:23 87 100 02/06/25 22:18 98 H 99 02/06/25 22:16 93 H 106/62 02/06/25 22:13 92 H 98 02/06/25 22:11 85 107/62 02/06/25 22:08 93 H 99 02/06/25 22:06 83 108/62 02/06/25 22:03 86 100 02/06/25 22:01 88 110/66 02/06/25 22:00 16 02/06/25 22:00 16 02/06/25 21:58 90 100 02/06/25 21:57 88 110/66 02/06/25 21:53 86 100 02/06/25 21:50 84 90 02/06/25 21:48 85 100 02/06/25 21:46 92 H 107/60 02/06/25 21:43 92 H 100 02/06/25 21:41 85 110/62 02/06/25 21:38 100 H 100 02/06/25 21:36 113 H 114/63 02/06/25 21:33 107 H 99 02/06/25 21:32 93 H 116/65 02/06/25 21:30 16 02/06/25 21:30 98.6 F 16 02/06/25 21:28 92 H 98 02/06/25 21:26 99 H 114/67 02/06/25 21:23 94 H 97 02/06/25 21:22 89 114/66 02/06/25 21:18 89 98 02/06/25 21:16 89 121/65 02/06/25 21:13 89 98 02/06/25 21:11 85 121/66 02/06/25 21:08 87 99 02/06/25 21:06 88 121/71 02/06/25 21:03 88 98 02/06/25 21:00 86 16 137/78 02/06/25 20:58 91 H 131/79 98 02/06/25 20:56 94 H 132/79 02/06/25 20:54 90 130/70 02/06/25 20:53 93 H 98 02/06/25 20:52 93 H 135/71 02/06/25 20:51 88 134/77 02/06/25 20:48 91 H 97 02/06/25 20:43 90 97 02/06/25 20:40 80 129/73 02/06/25 20:38 85 97 02/06/25 20:33 85 98 02/06/25 20:30 16 02/06/25 20:30 16 02/06/25 20:28 86 99 02/06/25 20:26 85 132/75 02/06/25 20:23 88 98 02/06/25 20:18 99 H 100 02/06/25 20:13 93 H 99 02/06/25 20:11 90 134/74 02/06/25 20:08 89 100 02/06/25 20:03 101 H 100 02/06/25 20:00 16 02/06/25 20:00 16 02/06/25 19:58 88 100 02/06/25 19:56 93 H 115/61 02/06/25 19:53 102 H 100 02/06/25 19:48 89 100 02/06/25 19:43 93 H 99 02/06/25 19:40 90 107/60 02/06/25 19:38 98 H 100 02/06/25 19:33 92 H 100 02/06/25 19:28 89 100 02/06/25 19:26 88 115/57 L 02/06/25 19:23 88 100 02/06/25 19:18 91 H 100 02/06/25 19:15 16 02/06/25 19:15 98.1 F 16 02/06/25 19:13 100 H 100 02/06/25 19:10 92 H 132/73 02/06/25 19:08 96 H 99 02/06/25 19:03 97 H 100 02/06/25 19:00 16 02/06/25 19:00 16 02/06/25 18:58 103 H 100 02/06/25 18:56 95 H 84 L 02/06/25 18:55 90 128/67 02/06/25 18:53 96 H 100 02/06/25 18:48 91 H 100 02/06/25 18:43 95 H 77 L 02/06/25 18:41 91 H 127/66 02/06/25 18:38 92 H 100 02/06/25 18:33 93 H 100 02/06/25 18:31 100 H 90 02/06/25 18:30 16 02/06/25 18:30 16 02/06/25 18:28 92 H 100 02/06/25 18:23 95 H 100 02/06/25 18:18 94 H 100 02/06/25 18:13 90 100 02/06/25 18:08 94 H 100 02/06/25 18:03 87 100 02/06/25 18:00 18 02/06/25 18:00 18 02/06/25 17:58 98 H 100 02/06/25 17:55 94 H 124/70 02/06/25 17:53 94 H 97 02/06/25 17:48 103 H 99 02/06/25 17:43 89 99 02/06/25 17:40 89 127/68 02/06/25 17:38 91 H 99 02/06/25 17:33 96 H 100 02/06/25 17:30 16 02/06/25 17:30 98.6 F 16 02/06/25 17:28 89 100 18 17:27 87 124/71 02/06/25 17:23 93 H 99 02/06/25 17:18 92 H 98 02/06/25 17:13 87 98 02/06/25 17:10 86 105/57 L 02/06/25 17:08 94 H 99 02/06/25 17:03 85 98 02/06/25 17:00 16 02/06/25 17:00 16 02/06/25 16:58 90 99 02/06/25 16:55 96 H 106/58 L 02/06/25 16:53 92 H 99 02/06/25 16:48 88 98 02/06/25 16:43 88 99 02/06/25 16:40 85 102/59 L 02/06/25 16:38 90 98 02/06/25 16:33 92 H 98 02/06/25 16:30 16 02/06/25 16:30 16 02/06/25 16:28 94 H 98 02/06/25 16:25 90 98/53 L 02/06/25 16:23 88 100 02/06/25 16:18 96 H 97 02/06/25 16:13 93 H 98 02/06/25 16:11 93 H 112/55 L 02/06/25 16:08 99 H 99 02/06/25 16:03 98 H 99 02/06/25 16:00 16 02/06/25 16:00 16 02/06/25 15:58 93 H 99 02/06/25 15:55 93 H 109/63 02/06/25 15:53 96 H 99 02/06/25 15:48 94 H 99 02/06/25 15:43 94 H 97 02/06/25 15:38 93 H 100 02/06/25 15:35 16 02/06/25 15:35 98.6 F 16 02/06/25 15:33 106 H 98 02/06/25 15:28 88 99 02/06/25 15:25 90 106/58 L 02/06/25 15:23 88 99 02/06/25 15:18 91 H 100 02/06/25 15:13 84 100 02/06/25 15:10 88 115/59 L 02/06/25 15:08 88 100 02/06/25 15:03 90 99 Coding Level of Care Code None Diagnoses 38 weeks gestation of Z3A.38 PROM (premature rupture of membranes) O42.90
[2025-02-07] MEDS ORDERED: LIDOCAINE 2%/EPINEPHRINE 1:200,000 20 ML PF ONE ×2 (03:20→13:19)
[2025-02-07] MEDS ORDERED: ROPIVACAINE 0.5% 5 MG/ML 30 ML VIAL ONE (03:20)
--- NOTE | 2025-02-07 03:27 | Anesthesia Procedure Note ---
Date of Service February 07, 2025 Anesthesia Epidural Re-Dose Vital Signs Temp Pulse Resp BP Pulse Ox 36.9 C 95 H 16 128/70 99 02/07/25 03:00 02/07/25 03:23 02/07/25 03:00 02/07/25 03:21 02/07/25 03:23 Notes Pain Intensity: 7 Dilatation (cm): 8.0 Effacement (%): 90 Called by nursing to evaluate epidural as the patient is having increased pain. The epidural was re-dosed with the following medications (all medications via epidural route) after negative aspiration of the epidural catheter for CSF/HEME. 5mll of 2% LIdocaine mixed with 5ml of 0.5% ropivicaine. Pt had received similar dose around 2229 with excellent relief. After Epidural Re-Dose Mental Status: alert / awake / arousable Pain: improving with treatment Airway Patency, RR, SpO2: stable & adequate BP & HR: stable & adequate
[2025-02-07] MEDS ORDERED: ePHEDrine sulfate 50 MG/5 ML SYR ONE (03:43)
[2025-02-07] MEDS: NURSING L&D Epidural Breakthrough Pain Update ONE (08:31)
[2025-02-07] MEDS: diphenhydrAMINE 50 MG/ML VIAL IV PRN (08:40)
[2025-02-07] MEDS ORDERED: BUPIVACAINE 0.25% PF 30 ML VIAL EPI PRN (10:07)
[2025-02-07] MEDS ORDERED: SODIUM CHLORIDE 0.9% PF INJ 10 ML VIAL EPI PRN (10:07)
[2025-02-07] MEDS ORDERED: LIDOCAINE 2% MPF LOCAL 5 ML VIAL EPI PRN (10:07)
[2025-02-07] MEDS ORDERED: ROPIVACAINE 0.5% PF 5 MG/ML 20 ML VIAL EPI PRN (10:07)
--- NOTE | 2025-02-07 10:38 | Labor Progress Brief Note ---
Date of Service February 07, 2025 Subjective pt comfortable. does feel pressure but nothing worse than what she has felt. Assessment & Plan (1) 38 weeks gestation of : (2) PROM (premature rupture of membranes): Plan given no cx change, pit was halved and now re-increasing. fhts categ 1. if achieve pit max again and cx unchanged, i have prepared patient for need for c/s delivery. she denies concerns. position change being utilized and pt is comfortable. bsg has been followed. reviewed with partner the plan, separately as he was not in room at the time, he asks about cervidil and reviewed indications for use of such and not indicated in pt scenario. Admission and Anticipated Discharge Date Admission Date: February 06, 2025 Physical Exam Constitutional: WD/WN, vitals as above Genitourinary: OB Exam Monitor Tracing: + external FHT monitor used, + intra- uterine pressure catheter used (iupc tracing but inadequate mvus, pit at 21), + category I and + normal FHT variability Results & Data Vital Signs (Past 12 Hours) Vital Signs Temp Pulse Resp BP Pulse Ox 02/07/25 10:33 88 99 02/07/25 10:28 86 100 02/07/25 10:27 93 H 137/80 02/07/25 10:23 100 H 100 02/07/25 10:18 90 100 02/07/25 10:13 100 02/07/25 10:13 93 H 02/07/25 10:13 104 H 137/81 02/07/25 10:08 88 100 02/07/25 10:03 83 100 02/07/25 10:00 20 02/07/25 10:00 20 02/07/25 09:58 100 02/07/25 09:58 84 02/07/25 09:58 86 128/77 02/07/25 09:53 85 100 02/07/25 09:48 95 H 100 02/07/25 09:43 100 02/07/25 09:43 91 H 02/07/25 09:43 99 H 117/64 02/07/25 09:38 85 99 02/07/25 09:33 86 100 02/07/25 09:30 20 02/07/25 09:30 20 02/07/25 09:28 92 H 100 02/07/25 09:27 89 112/62 02/07/25 09:23 95 H 100 02/07/25 09:18 86 100 02/07/25 09:13 96 H 100 02/07/25 09:12 85 114/60 02/07/25 09:08 98 H 100 02/07/25 09:03 92 H 100 02/07/25 09:00 98.4 F 18 02/07/25 08:59 96 H 130/68 02/07/25 08:58 95 H 100 02/07/25 08:53 95 H 100 02/07/25 08:48 100 H 100 02/07/25 08:43 104 H 100 02/07/25 08:38 98 H 99 02/07/25 08:33 94 H 98 02/07/25 08:30 20 02/07/25 08:28 100 H 100 02/07/25 08:27 97 H 137/81 02/07/25 08:23 101 H 99 02/07/25 08:18 102 H 99 02/07/25 08:13 98 H 136/77 97 02/07/25 08:08 94 H 98 02/07/25 08:03 93 H 98 02/07/25 08:00 16 02/07/25 07:58 92 H 98 02/07/25 07:57 88 131/76 02/07/25 07:53 91 H 98 02/07/25 07:48 98 H 99 02/07/25 07:43 91 H 143/75 H 99 02/07/25 07:38 91 H 98 02/07/25 07:33 92 H 98 02/07/25 07:30 18 02/07/25 07:28 98 02/07/25 07:28 87 02/07/25 07:28 89 141/80 H 02/07/25 07:23 88 98 02/07/25 07:18 94 H 99 02/07/25 07:13 112 H 108/61 99 02/07/25 07:08 94 H 98 02/07/25 07:03 104 H 100 02/07/25 07:00 98.4 F 20 02/07/25 07:00 18 02/07/25 07:00 18 02/07/25 06:58 97 H 143/75 H 99 02/07/25 06:57 95 H 140/71 02/07/25 06:53 89 99 02/07/25 06:48 90 98 02/07/25 06:44 88 137/74 02/07/25 06:43 89 98 02/07/25 06:38 88 98 02/07/25 06:33 90 97 02/07/25 06:30 18 02/07/25 06:30 18 02/07/25 06:28 89 97 02/07/25 06:27 85 121/61 02/07/25 06:23 85 98 02/07/25 06:18 83 97 02/07/25 06:13 85 97 02/07/25 06:12 83 117/61 02/07/25 06:08 84 97 02/07/25 06:03 85 97 02/07/25 06:00 16 02/07/25 06:00 16 02/07/25 05:58 80 98 02/07/25 05:57 80 104/59 L 02/07/25 05:53 81 98 02/07/25 05:48 84 99 02/07/25 05:43 86 100 02/07/25 05:42 81 101/60 02/07/25 05:38 105 H 100 02/07/25 05:33 94 H 99 02/07/25 05:30 18 02/07/25 05:30 18 02/07/25 05:28 101 H 96 02/07/25 05:27 89 118/64 02/07/25 05:23 90 98 02/07/25 05:18 88 97 02/07/25 05:13 87 97 02/07/25 05:12 86 114/59 L 02/07/25 05:08 85 98 02/07/25 05:03 85 98 02/07/25 04:58 88 99 02/07/25 04:57 102 H 111/58 L 02/07/25 04:53 83 97 02/07/25 04:48 87 97 02/07/25 04:43 97 02/07/25 04:43 85 02/07/25 04:43 86 112/67 02/07/25 04:42 101 H 113/67 02/07/25 04:38 89 97 02/07/25 04:33 89 96 02/07/25 04:28 86 96 02/07/25 04:27 85 108/55 L 02/07/25 04:23 87 97 02/07/25 04:18 88 97 02/07/25 04:13 88 97 02/07/25 04:10 83 108/58 L 02/07/25 04:08 78 109/58 L 98 02/07/25 04:06 84 107/57 L 02/07/25 04:04 82 108/58 L 02/07/25 04:03 84 100 02/07/25 04:02 87 107/56 L 02/07/25 04:01 92 H 102/53 L 02/07/25 04:00 16 02/07/25 04:00 16 02/07/25 03:58 86 107/56 L 100 02/07/25 03:56 90 108/56 L 02/07/25 03:54 94 H 107/58 L 02/07/25 03:53 91 H 100 02/07/25 03:52 86 104/56 L 02/07/25 03:50 86 16 103/56 L 02/07/25 03:48 91 H 101/58 L 100 02/07/25 03:46 76 92/54 L 02/07/25 03:45 71 86/46 L 02/07/25 03:43 100 02/07/25 03:43 75 02/07/25 03:43 73 86/39 L 02/07/25 03:41 78 95/46 L 02/07/25 03:38 103 H 84/50 L 99 02/07/25 03:37 92 H 87/50 L 02/07/25 03:34 95 H 105/57 L 02/07/25 03:33 95 H 99 02/07/25 03:32 99 H 111/61 02/07/25 03:30 92 H 18 113/65 02/07/25 03:28 94 H 110/64 99 02/07/25 03:26 96 H 120/70 02/07/25 03:25 92 H 121/73 02/07/25 03:23 95 H 99 02/07/25 03:21 93 H 128/70 02/07/25 03:18 89 99 02/07/25 03:13 88 99 02/07/25 03:08 88 99 02/07/25 03:07 93 H 143/73 H 02/07/25 03:03 94 H 99 02/07/25 03:00 16 02/07/25 03:00 98.4 F 16 02/07/25 02:58 90 100 02/07/25 02:53 88 98 02/07/25 02:51 97 H 127/75 02/07/25 02:48 93 H 99 02/07/25 02:43 96 H 98 02/07/25 02:38 93 H 98 02/07/25 02:36 85 124/74 02/07/25 02:33 85 98 02/07/25 02:30 18 02/07/25 02:30 18 02/07/25 02:28 87 97 02/07/25 02:23 88 98 02/07/25 02:22 82 124/71 02/07/25 02:18 91 H 98 02/07/25 02:13 88 99 02/07/25 02:08 92 H 98 02/07/25 02:06 94 H 123/66 02/07/25 02:03 96 H 100 02/07/25 02:00 16 02/07/25 02:00 16 02/07/25 01:58 101 H 99 02/07/25 01:53 99 H 99 02/07/25 01:51 92 H 128/66 02/07/25 01:48 95 H 98 02/07/25 01:43 91 H 97 02/07/25 01:38 95 H 99 02/07/25 01:36 96 H 127/61 02/07/25 01:33 99 H 100 02/07/25 01:30 16 02/07/25 01:30 16 02/07/25 01:28 102 H 97 02/07/25 01:23 94 H 99 02/07/25 01:22 92 H 132/65 02/07/25 01:18 92 H 100 02/07/25 01:13 111 H 100 02/07/25 01:08 90 98 02/07/25 01:07 90 121/72 02/07/25 01:03 96 H 98 02/07/25 01:00 16 02/07/25 01:00 98.6 F 16 02/07/25 00:58 102 H 99 02/07/25 00:53 92 H 99 02/07/25 00:52 94 H 127/68 02/07/25 00:48 98 H 99 02/07/25 00:43 100 H 99 02/07/25 00:38 83 97 02/07/25 00:37 83 98/56 L 02/07/25 00:33 83 95 02/07/25 00:30 16 02/07/25 00:30 16 02/07/25 00:28 85 95 02/07/25 00:23 85 98 02/07/25 00:21 86 109/56 L 02/07/25 00:18 86 97 02/07/25 00:13 82 97 02/07/25 00:08 82 96 02/07/25 00:07 80 100/55 L 02/07/25 00:05 85 94 02/07/25 00:03 83 95 02/07/25 00:00 16 02/07/25 00:00 16 02/06/25 23:58 84 94 02/06/25 23:53 81 95 02/06/25 23:52 81 100/59 L 02/06/25 23:50 91 H 94 02/06/25 23:48 83 95 02/06/25 23:43 80 96 02/06/25 23:38 81 97 02/06/25 23:37 77 104/59 L 02/06/25 23:33 81 96 02/06/25 23:30 16 02/06/25 23:30 16 02/06/25 23:28 79 97 02/06/25 23:23 78 98 02/06/25 23:22 82 104/55 L 02/06/25 23:18 80 96 02/06/25 23:13 82 97 02/06/25 23:08 86 98 02/06/25 23:07 79 97/53 L 02/06/25 23:03 81 98 02/06/25 23:00 16 02/06/25 23:00 98.4 F 16 02/06/25 22:58 81 98 02/06/25 22:53 77 98 02/06/25 22:52 78 98/55 L 02/06/25 22:48 107 H 96 02/06/25 22:43 91 H 97 02/06/25 22:38 90 98 02/06/25 22:36 88 110/66 Coding Level of Care Code None Diagnoses 38 weeks gestation of Z3A.38 PROM (premature rupture of membranes) O42.90
[2025-02-07] MEDS ORDERED: fentANYL 2 MCG/ML BUPIVacaine 0.125%-NSS 100ML BAG EPI PRN (11:49)
[2025-02-07] MEDS ORDERED: NALOXONE HCL 1 MG in SODIUM CHLORIDE 0.9% 1,000 ML IV PRN ×2 (11:49→17:35)
[2025-02-07] MEDS ORDERED: NALBUPHINE HCL INJ 10 MG/ML AMP IV PRN ×2 (11:49→17:35)
[2025-02-07] MEDS ORDERED: ONDANSETRON INJ 2 MG/ML 2 ML VIAL IV PRN ×2 (11:49→17:35)
[2025-02-07] MEDS ORDERED: diphenhydrAMINE 50 MG/ML VIAL IV PRN ×2 (11:49→17:35)
[2025-02-07] MEDS ORDERED: NALOXONE HCL 0.4 MG/1 ML VIAL/CARP IV PRN ×2 (11:49→17:35)
--- NOTE | 2025-02-07 12:58 | Labor Progress Brief Note ---
Date of Service February 07, 2025 Subjective pt comfortable. Assessment & Plan (1) 38 weeks gestation of : (2) PROM (premature rupture of membranes): Plan still no cervical change. we have now used pit to 30 twice, second time now after halving pit. cx remains unchanged. never achieved adequate mvu's and thick anterior lip. rec proceeding with c/s for ftp. pt and partner agreeable. consent reviewed and signed. anesth and nursing aware. peds has been notified. fhts are categ 1. Admission and Anticipated Discharge Date Admission Date: February 06, 2025 Physical Exam Constitutional: WD/WN, vitals as above Genitourinary: Manual OB Exam: + cervical dilation (8), + cervical effacement (thick anterior lip) 100% and + station 0 OB Exam Monitor Tracing: + external FHT monitor used, + intra-uterine pressure catheter used (mvu's inadequate, pit at 30 at least for 30min), + category I and + normal FHT variability Results & Data Vital Signs (Past 12 Hours) Vital Signs Temp Pulse Resp BP Pulse Ox 02/07/25 12:54 98 H 99 02/07/25 12:48 100 H 98 02/07/25 12:43 98 H 110/65 98 02/07/25 12:38 96 H 97 02/07/25 12:33 96 H 98 02/07/25 12:30 20 02/07/25 12:30 20 02/07/25 12:28 95 H 98 02/07/25 12:27 100 H 115/68 02/07/25 12:23 95 H 98 02/07/25 12:18 100 H 97 02/07/25 12:13 98 02/07/25 12:13 95 H 02/07/25 12:13 96 H 110/68 02/07/25 12:08 93 H 98 02/07/25 12:03 95 H 98 02/07/25 12:00 16 02/07/25 12:00 16 02/07/25 11:58 99 H 99 02/07/25 11:57 97 H 113/68 02/07/25 11:53 95 H 97 02/07/25 11:48 95 H 99 02/07/25 11:43 95 H 115/73 98 02/07/25 11:38 98 H 97 02/07/25 11:33 94 H 98 02/07/25 11:30 20 02/07/25 11:30 20 02/07/25 11:28 91 H 99 02/07/25 11:27 93 H 113/72 02/07/25 11:23 91 H 99 02/07/25 11:18 95 H 99 02/07/25 11:13 90 100 02/07/25 11:12 94 H 128/76 02/07/25 11:08 94 H 99 02/07/25 11:03 97 H 100 02/07/25 11:00 20 02/07/25 11:00 98.6 F 20 02/07/25 10:58 100 02/07/25 10:58 99 H 02/07/25 10:58 93 H 134/76 02/07/25 10:53 87 99 02/07/25 10:48 82 99 02/07/25 10:43 97 H 113/67 100 02/07/25 10:38 91 H 100 02/07/25 10:33 88 99 02/07/25 10:30 18 02/07/25 10:30 18 02/07/25 10:28 86 100 02/07/25 10:27 93 H 137/80 02/07/25 10:23 100 H 100 02/07/25 10:18 90 100 02/07/25 10:13 100 02/07/25 10:13 93 H 02/07/25 10:13 104 H 137/81 02/07/25 10:08 88 100 02/07/25 10:03 83 100 02/07/25 10:00 20 02/07/25 10:00 20 02/07/25 09:58 100 02/07/25 09:58 84 02/07/25 09:58 86 128/77 02/07/25 09:53 85 100 02/07/25 09:48 95 H 100 02/07/25 09:43 100 02/07/25 09:43 91 H 02/07/25 09:43 99 H 117/64 02/07/25 09:38 85 99 02/07/25 09:33 86 100 02/07/25 09:30 20 02/07/25 09:30 20 02/07/25 09:28 92 H 100 02/07/25 09:27 89 112/62 02/07/25 09:23 95 H 100 02/07/25 09:18 86 100 02/07/25 09:13 96 H 100 02/07/25 09:12 85 114/60 02/07/25 09:08 98 H 100 02/07/25 09:03 92 H 100 02/07/25 09:00 98.4 F 18 02/07/25 08:59 96 H 130/68 02/07/25 08:58 95 H 100 02/07/25 08:53 95 H 100 02/07/25 08:48 100 H 100 02/07/25 08:43 104 H 100 02/07/25 08:38 98 H 99 02/07/25 08:33 94 H 98 02/07/25 08:30 20 02/07/25 08:28 100 H 100 02/07/25 08:27 97 H 137/81 02/07/25 08:23 101 H 99 02/07/25 08:18 102 H 99 02/07/25 08:13 98 H 136/77 97 02/07/25 08:08 94 H 98 02/07/25 08:03 93 H 98 02/07/25 08:00 16 02/07/25 07:58 92 H 98 02/07/25 07:57 88 131/76 02/07/25 07:53 91 H 98 02/07/25 07:48 98 H 99 02/07/25 07:43 91 H 143/75 H 99 02/07/25 07:38 91 H 98 02/07/25 07:33 92 H 98 02/07/25 07:30 18 02/07/25 07:28 98 02/07/25 07:28 87 02/07/25 07:28 89 141/80 H 02/07/25 07:23 88 98 02/07/25 07:18 94 H 99 02/07/25 07:13 112 H 108/61 99 02/07/25 07:08 94 H 98 02/07/25 07:03 104 H 100 02/07/25 07:00 98.4 F 20 02/07/25 07:00 18 02/07/25 07:00 18 02/07/25 06:58 97 H 143/75 H 99 02/07/25 06:57 95 H 140/71 02/07/25 06:53 89 99 02/07/25 06:48 90 98 02/07/25 06:44 88 137/74 02/07/25 06:43 89 98 02/07/25 06:38 88 98 02/07/25 06:33 90 97 02/07/25 06:30 18 02/07/25 06:30 18 02/07/25 06:28 89 97 02/07/25 06:27 85 121/61 02/07/25 06:23 85 98 02/07/25 06:18 83 97 02/07/25 06:13 85 97 02/07/25 06:12 83 117/61 02/07/25 06:08 84 97 02/07/25 06:03 85 97 02/07/25 06:00 16 02/07/25 06:00 16 02/07/25 05:58 80 98 02/07/25 05:57 80 104/59 L 02/07/25 05:53 81 98 02/07/25 05:48 84 99 02/07/25 05:43 86 100 02/07/25 05:42 81 101/60 02/07/25 05:38 105 H 100 02/07/25 05:33 94 H 99 02/07/25 05:30 18 02/07/25 05:30 18 02/07/25 05:28 101 H 96 02/07/25 05:27 89 118/64 02/07/25 05:23 90 98 02/07/25 05:18 88 97 02/07/25 05:13 87 97 02/07/25 05:12 86 114/59 L 02/07/25 05:08 85 98 02/07/25 05:03 85 98 02/07/25 04:58 88 99 02/07/25 04:57 102 H 111/58 L 02/07/25 04:53 83 97 02/07/25 04:48 87 97 02/07/25 04:43 97 02/07/25 04:43 85 02/07/25 04:43 86 112/67 02/07/25 04:42 101 H 113/67 02/07/25 04:38 89 97 02/07/25 04:33 89 96 02/07/25 04:28 86 96 02/07/25 04:27 85 108/55 L 02/07/25 04:23 87 97 02/07/25 04:18 88 97 02/07/25 04:13 88 97 02/07/25 04:10 83 108/58 L 02/07/25 04:08 78 109/58 L 98 02/07/25 04:06 84 107/57 L 02/07/25 04:04 82 108/58 L 02/07/25 04:03 84 100 02/07/25 04:02 87 107/56 L 02/07/25 04:01 92 H 102/53 L 02/07/25 04:00 16 02/07/25 04:00 16 02/07/25 03:58 86 107/56 L 100 02/07/25 03:56 90 108/56 L 02/07/25 03:54 94 H 107/58 L 02/07/25 03:53 91 H 100 02/07/25 03:52 86 104/56 L 02/07/25 03:50 86 16 103/56 L 02/07/25 03:48 91 H 101/58 L 100 02/07/25 03:46 76 92/54 L 02/07/25 03:45 71 86/46 L 02/07/25 03:43 100 02/07/25 03:43 75 02/07/25 03:43 73 86/39 L 02/07/25 03:41 78 95/46 L 02/07/25 03:38 103 H 84/50 L 99 02/07/25 03:37 92 H 87/50 L 02/07/25 03:34 95 H 105/57 L 02/07/25 03:33 95 H 99 02/07/25 03:32 99 H 111/61 02/07/25 03:30 92 H 18 113/65 02/07/25 03:28 94 H 110/64 99 02/07/25 03:26 96 H 120/70 02/07/25 03:25 92 H 121/73 02/07/25 03:23 95 H 99 02/07/25 03:21 93 H 128/70 02/07/25 03:18 89 99 02/07/25 03:13 88 99 02/07/25 03:08 88 99 02/07/25 03:07 93 H 143/73 H 02/07/25 03:03 94 H 99 02/07/25 03:00 16 02/07/25 03:00 98.4 F 16 02/07/25 02:58 90 100 02/07/25 02:53 88 98 02/07/25 02:51 97 H 127/75 02/07/25 02:48 93 H 99 02/07/25 02:43 96 H 98 02/07/25 02:38 93 H 98 02/07/25 02:36 85 124/74 02/07/25 02:33 85 98 02/07/25 02:30 18 02/07/25 02:30 18 02/07/25 02:28 87 97 02/07/25 02:23 88 98 02/07/25 02:22 82 124/71 02/07/25 02:18 91 H 98 02/07/25 02:13 88 99 02/07/25 02:08 92 H 98 02/07/25 02:06 94 H 123/66 02/07/25 02:03 96 H 100 02/07/25 02:00 16 02/07/25 02:00 16 02/07/25 01:58 101 H 99 02/07/25 01:53 99 H 99 02/07/25 01:51 92 H 128/66 02/07/25 01:48 95 H 98 02/07/25 01:43 91 H 97 02/07/25 01:38 95 H 99 02/07/25 01:36 96 H 127/61 02/07/25 01:33 99 H 100 02/07/25 01:30 16 02/07/25 01:30 16 02/07/25 01:28 102 H 97 02/07/25 01:23 94 H 99 02/07/25 01:22 92 H 132/65 02/07/25 01:18 92 H 100 02/07/25 01:13 111 H 100 02/07/25 01:08 90 98 02/07/25 01:07 90 121/72 02/07/25 01:03 96 H 98 02/07/25 01:00 16 02/07/25 01:00 98.6 F 16 02/07/25 00:58 102 H 99 Coding Level of Care Code None Diagnoses 38 weeks gestation of Z3A.38 PROM (premature rupture of membranes) O42.90
[2025-02-07] MEDS: CITRIC ACID/SODIUM CITRATE 15 ML UDC ONE (13:07)
[2025-02-07] MEDS: ACETAMINOPHEN 500 MG TAB ONE (13:07)
[2025-02-07] MEDS: CITRIC ACID/SODIUM CITRATE 15 ML UDC PO SCH (13:17)
[2025-02-07] MEDS: ACETAMINOPHEN 500 MG TAB PO SCH (13:17)
[2025-02-07] MEDS ORDERED: PHENYLEPHRINE HCL 25 MG/250 ML NSS IV ONE (13:19)
[2025-02-07] MEDS ORDERED: MoRPHine SULFATE PF 1 MG/ML 10 ML AMP/VIAL ONE (13:19)
[2025-02-07] MEDS ORDERED: DEXAMETHASONE SOD INJ 4 MG/ML VIAL ONE (13:19)
[2025-02-07] MEDS ORDERED: ONDANSETRON INJ 2 MG/ML 2 ML VIAL ONE (13:19)
[2025-02-07] MEDS ORDERED: OXYTOCIN 10 UNITS/ML VIAL ONE ×3 (13:22→14:11)
[2025-02-07] MEDS: AZITHROMYCIN 500 MG/255 ML BAG IV SCH (13:23)
--- NOTE | 2025-02-07 14:21 | Operative Report ---
Post Operative Report Pre & Post Diagnosis Operation Date: 02/07/25 13:10 <No data on this case meets the specified criteria> 38 weeks iup Prom Failure to progress I identified the patient and participated in the time-out.: Yes Procedure Operation Date: 02/07/25 13:10 <No data on this case meets the specified criteria> Primary Low Transverse Section Surgeon Sabi Ventura MD, FACOG [employer] RN Quantitative Blood Loss (QBL) 360 Findings Consistent with Post-Op Diagnosis (viable , apgars 8,9. Normal uterus tubes and ovaries bilaterally) Fluids 1200cc Specimens cord blood Drains martinez Anesthesia Type Labor Epidural Complications none Disposition Accompanied Patient To Recovery: No Disposition: L&D Indications 39yo with cc of prom at 38wks, pitocin augmentation and failure to progress in labor for planned c/s. Description of Procedure The patient was taken to the operating room and identified. After adequate anesthesia was obtained, she was placed in the supine position with a leftward tilt on the operating table and prepped and draped in the usual sterile fashion. A martinez catheter had already been placed. The knife was used to create a Pfannensteil skin incision that was carried down to the underlying layer of fascia. The fascia was nicked in the midline and this opening was extended laterally using Parker scissors. Jono clamps were placed on the superior and inferior aspect of the fascial incision tenting it upward and the underlying rectus muscles were dissected off the overlying fascia both sharply and bluntly using Parker scissors. The rectus muscles were bluntly in the midline. The peritoneal cavity was bluntly entered into. This opening was stretched. The bladder blade was placed. The vesicouterine peritoneum was elevated and opened up into and the bladder flap was created digitally and bladder blade was replaced. The knife was used to create a hysterotomy and this opening was stretched. The operators hand was placed through the hysterotomy and the bladder blade was removed. The head was elevated and flexed and with fundal pressure the head was delivered. The shoulders and body were rapidly delivered. The cord was clamped and cut and the 's mouth and nares were bulb suction. The was handed off to the awaiting pediatricians. Cord blood was obtained. The placenta was manually expressed. The uterus was exteriorized and cleared of all clots and debris. Dilute IV Pitocin was begun. The uterine tone was improving. The hysterotomy was closed in a running interlocking fashion using 0 Vicryl followed by a second imbricating layer of 0 Vicryl. The hysterotomy was hemostatic. The pelvis was irrigated. The uterus was returned to the abdomen. The gutters were cleared of all clots and debris. The hysterotomy was reinspected and bleeding site was noted on left aspect, stitched with figure of eight suture of 3-0 vicryl and noted to be hemostatic. The fascia was then closed in running fashion using 0 Vicryl. The subcutaneous fat was copiously irrigated and reapproximated using 2-0 chromic. The skin was closed in a subcuticular fashion using 4-0 monocryl. At this point the procedure was terminated. The patient was transferred to the recovery room in stable condition. All sponge, lap and needle counts are correct x2. I attest to the content of the Intraoperative Record and any orders documented therein. Any exceptions are noted below. OB Procedure Charges 74658
--- NOTE | 2025-02-07 14:31 | Anesthesia Procedure Note ---
Date of Service February 07, 2025 Anesthesia Post Epidural Note Vital Signs Vital Signs: Temp Pulse Resp BP Pulse Ox 37.0 C 92 H 20 165/62 H 98 02/07/25 11:00 02/07/25 14:28 02/07/25 12:30 02/07/25 14:28 02/07/25 14:28 Pain Intensity Lower Back: Pain Intensity: 0 Notes Mental Status: alert / awake / arousable and participated in evaluation Nausea / Vomiting: adequately controlled Pain: adequately controlled Airway Patency, RR, SpO2: stable & adequate BP & HR: stable & adequate Hydration State: stable & adequate Neuraxial Anesthesia: was administered and sensory block resolved Anesthetic Complications: no major complications apparent and Pt Satisfied with anesthetic care Epidural: Removed without complications and With tip intact
[2025-02-07] MEDS: LACTATED RINGER'S 1,000 ML IV SCH ×2 (14:50→17:19)
[2025-02-07] MEDS: SODIUM CHLORIDE 0.9% PF INJ 10 ML VIAL EPI STA (14:50)
[2025-02-07] MEDS: LIDOCAINE 2%/EPINEPHRINE 1:200,000 20 ML PF EPI STA (14:50)
[2025-02-07] MEDS: BUPIVACAINE 0.25% PF 30 ML VIAL EPI STA (14:50)
[2025-02-07] MEDS: KETOROLAC 30 MG/ML VIAL ONE (14:57)
--- NOTE | 2025-02-07 15:09 | Anesthesiology Progress Note ---
Date of Service February 07, 2025 Anesthesia Post Procedure Vital Signs Vital Signs: Temp Pulse Resp BP Pulse Ox 02/07/25 15:03 114 H 93 02/07/25 15:01 108 H 91 02/07/25 14:59 112 H 123/57 L 02/07/25 14:58 112 H 100 02/07/25 14:53 118 H 99 02/07/25 14:49 109 H 115/54 L 02/07/25 14:48 111 H 100 02/07/25 14:43 98 H 99 02/07/25 14:39 95 H 104/55 L 02/07/25 14:38 96 H 99 02/07/25 14:33 96 H 99 02/07/25 14:28 92 H 165/62 H 98 02/07/25 13:24 102 H 98 02/07/25 13:19 98 H 98 02/07/25 13:14 97 H 99 02/07/25 13:12 101 H 132/82 02/07/25 13:09 117 H 99 02/07/25 13:04 102 H 100 02/07/25 12:59 106 H 99 02/07/25 12:58 97 H 126/73 02/07/25 12:54 98 H 99 02/07/25 12:48 100 H 98 02/07/25 12:43 98 H 110/65 98 02/07/25 12:38 96 H 97 02/07/25 12:33 96 H 98 02/07/25 12:30 20 02/07/25 12:30 20 02/07/25 12:28 95 H 98 02/07/25 12:27 100 H 115/68 02/07/25 12:23 95 H 98 02/07/25 12:18 100 H 97 02/07/25 12:13 98 02/07/25 12:13 95 H 02/07/25 12:13 96 H 110/68 02/07/25 12:08 93 H 98 02/07/25 12:03 95 H 98 02/07/25 12:00 16 02/07/25 12:00 16 02/07/25 11:58 99 H 99 02/07/25 11:57 97 H 113/68 02/07/25 11:53 95 H 97 02/07/25 11:48 95 H 99 02/07/25 11:43 95 H 115/73 98 02/07/25 11:38 98 H 97 02/07/25 11:33 94 H 98 02/07/25 11:30 20 02/07/25 11:30 20 02/07/25 11:28 91 H 99 02/07/25 11:27 93 H 113/72 02/07/25 11:23 91 H 99 02/07/25 11:18 95 H 99 02/07/25 11:13 90 100 02/07/25 11:12 94 H 128/76 02/07/25 11:08 94 H 99 02/07/25 11:03 97 H 100 02/07/25 11:00 20 02/07/25 11:00 37.0 C 20 02/07/25 10:58 100 02/07/25 10:58 99 H 02/07/25 10:58 93 H 134/76 02/07/25 10:53 87 99 02/07/25 10:48 82 99 02/07/25 10:43 97 H 113/67 100 02/07/25 10:38 91 H 100 02/07/25 10:33 88 99 02/07/25 10:30 18 02/07/25 10:30 18 02/07/25 10:28 86 100 02/07/25 10:27 93 H 137/80 02/07/25 10:23 100 H 100 02/07/25 10:18 90 100 02/07/25 10:13 100 02/07/25 10:13 93 H 02/07/25 10:13 104 H 137/81 02/07/25 10:08 88 100 02/07/25 10:03 83 100 02/07/25 10:00 20 02/07/25 10:00 20 02/07/25 09:58 100 02/07/25 09:58 84 02/07/25 09:58 86 128/77 02/07/25 09:53 85 100 02/07/25 09:48 95 H 100 02/07/25 09:43 100 02/07/25 09:43 91 H 02/07/25 09:43 99 H 117/64 02/07/25 09:38 85 99 02/07/25 09:33 86 100 02/07/25 09:30 20 02/07/25 09:30 20 02/07/25 09:28 92 H 100 02/07/25 09:27 89 112/62 02/07/25 09:23 95 H 100 02/07/25 09:18 86 100 02/07/25 09:13 96 H 100 02/07/25 09:12 85 114/60 02/07/25 09:08 98 H 100 02/07/25 09:03 92 H 100 02/07/25 09:00 36.9 C 18 02/07/25 08:59 96 H 130/68 02/07/25 08:58 95 H 100 02/07/25 08:53 95 H 100 02/07/25 08:48 100 H 100 02/07/25 08:43 104 H 100 02/07/25 08:38 98 H 99 02/07/25 08:33 94 H 98 02/07/25 08:30 20 02/07/25 08:28 100 H 100 02/07/25 08:27 97 H 137/81 02/07/25 08:23 101 H 99 02/07/25 08:18 102 H 99 02/07/25 08:13 98 H 136/77 97 02/07/25 08:08 94 H 98 02/07/25 08:03 93 H 98 02/07/25 08:00 16 02/07/25 07:58 92 H 98 02/07/25 07:57 88 131/76 02/07/25 07:53 91 H 98 02/07/25 07:48 98 H 99 02/07/25 07:43 91 H 143/75 H 99 02/07/25 07:38 91 H 98 02/07/25 07:33 92 H 98 02/07/25 07:30 18 02/07/25 07:28 98 02/07/25 07:28 87 02/07/25 07:28 89 141/80 H 02/07/25 07:23 88 98 02/07/25 07:18 94 H 99 02/07/25 07:13 112 H 108/61 99 02/07/25 07:08 94 H 98 02/07/25 07:03 104 H 100 02/07/25 07:00 36.9 C 20 02/07/25 07:00 18 02/07/25 07:00 18 02/07/25 06:58 97 H 143/75 H 99 02/07/25 06:57 95 H 140/71 02/07/25 06:53 89 99 02/07/25 06:48 90 98 02/07/25 06:44 88 137/74 02/07/25 06:43 89 98 02/07/25 06:38 88 98 02/07/25 06:33 90 97 02/07/25 06:30 18 02/07/25 06:30 18 02/07/25 06:28 89 97 02/07/25 06:27 85 121/61 02/07/25 06:23 85 98 02/07/25 06:18 83 97 02/07/25 06:13 85 97 02/07/25 06:12 83 117/61 02/07/25 06:08 84 97 02/07/25 06:03 85 97 02/07/25 06:00 16 02/07/25 06:00 16 02/07/25 05:58 80 98 02/07/25 05:57 80 104/59 L 02/07/25 05:53 81 98 02/07/25 05:48 84 99 02/07/25 05:43 86 100 02/07/25 05:42 81 101/60 02/07/25 05:38 105 H 100 02/07/25 05:33 94 H 99 02/07/25 05:30 18 02/07/25 05:30 18 02/07/25 05:28 101 H 96 02/07/25 05:27 89 118/64 02/07/25 05:23 90 98 02/07/25 05:18 88 97 02/07/25 05:13 87 97 02/07/25 05:12 86 114/59 L 02/07/25 05:08 85 98 02/07/25 05:03 85 98 02/07/25 04:58 88 99 02/07/25 04:57 102 H 111/58 L 02/07/25 04:53 83 97 02/07/25 04:48 87 97 02/07/25 04:43 97 02/07/25 04:43 85 02/07/25 04:43 86 112/67 02/07/25 04:42 101 H 113/67 02/07/25 04:38 89 97 02/07/25 04:33 89 96 02/07/25 04:28 86 96 02/07/25 04:27 85 108/55 L 02/07/25 04:23 87 97 02/07/25 04:18 88 97 02/07/25 04:13 88 97 02/07/25 04:10 83 108/58 L 02/07/25 04:08 78 109/58 L 98 02/07/25 04:06 84 107/57 L 02/07/25 04:04 82 108/58 L 02/07/25 04:03 84 100 02/07/25 04:02 87 107/56 L 02/07/25 04:01 92 H 102/53 L 02/07/25 04:00 16 02/07/25 04:00 16 02/07/25 03:58 86 107/56 L 100 02/07/25 03:56 90 108/56 L 02/07/25 03:54 94 H 107/58 L 02/07/25 03:53 91 H 100 02/07/25 03:52 86 104/56 L 02/07/25 03:50 86 16 103/56 L 02/07/25 03:48 91 H 101/58 L 100 02/07/25 03:46 76 92/54 L 02/07/25 03:45 71 86/46 L 02/07/25 03:43 100 02/07/25 03:43 75 02/07/25 03:43 73 86/39 L 02/07/25 03:41 78 95/46 L 02/07/25 03:38 103 H 84/50 L 99 02/07/25 03:37 92 H 87/50 L 02/07/25 03:34 95 H 105/57 L 02/07/25 03:33 95 H 99 02/07/25 03:32 99 H 111/61 02/07/25 03:30 92 H 18 113/65 02/07/25 03:28 94 H 110/64 99 02/07/25 03:26 96 H 120/70 02/07/25 03:25 92 H 121/73 02/07/25 03:23 95 H 99 02/07/25 03:21 93 H 128/70 02/07/25 03:18 89 99 02/07/25 03:13 88 99 02/07/25 03:08 88 99 02/07/25 03:07 93 H 143/73 H 02/07/25 03:03 94 H 99 02/07/25 03:00 16 02/07/25 03:00 36.9 C 16 02/07/25 02:58 90 100 02/07/25 02:53 88 98 02/07/25 02:51 97 H 127/75 02/07/25 02:48 93 H 99 02/07/25 02:43 96 H 98 02/07/25 02:38 93 H 98 02/07/25 02:36 85 124/74 02/07/25 02:33 85 98 02/07/25 02:30 18 02/07/25 02:30 18 02/07/25 02:28 87 97 02/07/25 02:23 88 98 02/07/25 02:22 82 124/71 02/07/25 02:18 91 H 98 02/07/25 02:13 88 99 02/07/25 02:08 92 H 98 02/07/25 02:06 94 H 123/66 02/07/25 02:03 96 H 100 02/07/25 02:00 16 02/07/25 02:00 16 02/07/25 01:58 101 H 99 02/07/25 01:53 99 H 99 02/07/25 01:51 92 H 128/66 02/07/25 01:48 95 H 98 02/07/25 01:43 91 H 97 02/07/25 01:38 95 H 99 02/07/25 01:36 96 H 127/61 02/07/25 01:33 99 H 100 02/07/25 01:30 16 02/07/25 01:30 16 02/07/25 01:28 102 H 97 02/07/25 01:23 94 H 99 02/07/25 01:22 92 H 132/65 02/07/25 01:18 92 H 100 02/07/25 01:13 111 H 100 02/07/25 01:08 90 98 02/07/25 01:07 90 121/72 02/07/25 01:03 96 H 98 02/07/25 01:00 16 02/07/25 01:00 37.0 C 16 02/07/25 00:58 102 H 99 02/07/25 00:53 92 H 99 02/07/25 00:52 94 H 127/68 02/07/25 00:48 98 H 99 02/07/25 00:43 100 H 99 02/07/25 00:38 83 97 02/07/25 00:37 83 98/56 L 02/07/25 00:33 83 95 02/07/25 00:30 16 02/07/25 00:30 16 02/07/25 00:28 85 95 02/07/25 00:23 85 98 02/07/25 00:21 86 109/56 L 02/07/25 00:18 86 97 02/07/25 00:13 82 97 02/07/25 00:08 82 96 02/07/25 00:07 80 100/55 L 02/07/25 00:05 85 94 02/07/25 00:03 83 95 02/07/25 00:00 16 02/07/25 00:00 16 02/06/25 23:58 84 94 02/06/25 23:53 81 95 02/06/25 23:52 81 100/59 L 02/06/25 23:50 91 H 94 02/06/25 23:48 83 95 02/06/25 23:43 80 96 02/06/25 23:38 81 97 02/06/25 23:37 77 104/59 L 02/06/25 23:33 81 96 02/06/25 23:30 16 02/06/25 23:30 16 02/06/25 23:28 79 97 02/06/25 23:23 78 98 02/06/25 23:22 82 104/55 L 02/06/25 23:18 80 96 02/06/25 23:13 82 97 02/06/25 23:08 86 98 02/06/25 23:07 79 97/53 L 02/06/25 23:03 81 98 02/06/25 23:00 16 02/06/25 23:00 36.9 C 16 02/06/25 22:58 81 98 02/06/25 22:53 77 98 02/06/25 22:52 78 98/55 L 02/06/25 22:48 107 H 96 02/06/25 22:43 91 H 97 02/06/25 22:38 90 98 02/06/25 22:36 88 110/66 10/18/25 22:33 89 99 02/06/25 22:30 16 02/06/25 22:30 16 02/06/25 22:28 96 H 99 02/06/25 22:23 87 100 02/06/25 22:18 98 H 99 02/06/25 22:16 93 H 106/62 02/06/25 22:13 92 H 98 02/06/25 22:11 85 107/62 02/06/25 22:08 93 H 99 02/06/25 22:06 83 108/62 02/06/25 22:03 86 100 02/06/25 22:01 88 110/66 02/06/25 22:00 16 02/06/25 22:00 16 02/06/25 21:58 90 100 02/06/25 21:57 88 110/66 02/06/25 21:53 86 100 02/06/25 21:50 84 90 02/06/25 21:48 85 100 02/06/25 21:46 92 H 107/60 02/06/25 21:43 92 H 100 02/06/25 21:41 85 110/62 02/06/25 21:38 100 H 100 02/06/25 21:36 113 H 114/63 02/06/25 21:33 107 H 99 02/06/25 21:32 93 H 116/65 02/06/25 21:30 16 02/06/25 21:30 37.0 C 16 02/06/25 21:28 92 H 98 02/06/25 21:26 99 H 114/67 02/06/25 21:23 94 H 97 02/06/25 21:22 89 114/66 02/06/25 21:18 89 98 02/06/25 21:16 89 121/65 02/06/25 21:13 89 98 02/06/25 21:11 85 121/66 02/06/25 21:08 87 99 02/06/25 21:06 88 121/71 02/06/25 21:03 88 98 02/06/25 21:00 86 16 137/78 02/06/25 20:58 91 H 131/79 98 02/06/25 20:56 94 H 132/79 02/06/25 20:54 90 130/70 02/06/25 20:53 93 H 98 18 20:52 93 H 135/71 18 20:51 88 134/77 02/06/25 20:48 91 H 97 02/06/25 20:43 90 97 18 20:40 80 129/73 02/06/25 20:38 85 97 18 20:33 85 98 02/06/25 20:30 16 02/06/25 20:30 16 02/06/25 20:28 86 99 02/06/25 20:26 85 132/75 02/06/25 20:23 88 98 02/06/25 20:18 99 H 100 02/06/25 20:13 93 H 99 02/06/25 20:11 90 134/74 02/06/25 20:08 89 100 02/06/25 20:03 101 H 100 02/06/25 20:00 16 02/06/25 20:00 16 02/06/25 19:58 88 100 02/06/25 19:56 93 H 115/61 02/06/25 19:53 102 H 100 02/06/25 19:48 89 100 02/06/25 19:43 93 H 99 02/06/25 19:40 90 107/60 02/06/25 19:38 98 H 100 02/06/25 19:33 92 H 100 02/06/25 19:28 89 100 02/06/25 19:26 88 115/57 L 02/06/25 19:23 88 100 02/06/25 19:18 91 H 100 02/06/25 19:15 16 02/06/25 19:15 36.7 C 16 02/06/25 19:13 100 H 100 02/06/25 19:10 92 H 132/73 02/06/25 19:08 96 H 99 02/06/25 19:03 97 H 100 02/06/25 19:00 16 02/06/25 19:00 16 02/06/25 18:58 103 H 100 02/06/25 18:56 95 H 84 L 02/06/25 18:55 90 128/67 02/06/25 18:53 96 H 100 02/06/25 18:48 91 H 100 02/06/25 18:43 95 H 77 L 02/06/25 18:41 91 H 127/66 02/06/25 18:38 92 H 100 02/06/25 18:33 93 H 100 02/06/25 18:31 100 H 90 02/06/25 18:30 16 02/06/25 18:30 16 02/06/25 18:28 92 H 100 02/06/25 18:23 95 H 100 02/06/25 18:18 94 H 100 02/06/25 18:13 90 100 02/06/25 18:08 94 H 100 02/06/25 18:03 87 100 02/06/25 18:00 18 02/06/25 18:00 18 02/06/25 17:58 98 H 100 02/06/25 17:55 94 H 124/70 02/06/25 17:53 94 H 97 02/06/25 17:48 103 H 99 02/06/25 17:43 89 99 02/06/25 17:40 89 127/68 02/06/25 17:38 91 H 99 02/06/25 17:33 96 H 100 02/06/25 17:30 16 02/06/25 17:30 37.0 C 16 02/06/25 17:28 89 100 02/06/25 17:27 87 124/71 02/06/25 17:23 93 H 99 02/06/25 17:18 92 H 98 02/06/25 17:13 87 98 02/06/25 17:10 86 105/57 L 02/06/25 17:08 94 H 99 02/06/25 17:03 85 98 02/06/25 17:00 16 02/06/25 17:00 16 02/06/25 16:58 90 99 02/06/25 16:55 96 H 106/58 L 02/06/25 16:53 92 H 99 02/06/25 16:48 88 98 02/06/25 16:43 88 99 02/06/25 16:40 85 102/59 L 02/06/25 16:38 90 98 02/06/25 16:33 92 H 98 02/06/25 16:30 16 02/06/25 16:30 16 02/06/25 16:28 94 H 98 02/06/25 16:25 90 98/53 L 02/06/25 16:23 88 100 02/06/25 16:18 96 H 97 02/06/25 16:13 93 H 98 02/06/25 16:11 93 H 112/55 L 02/06/25 16:08 99 H 99 02/06/25 16:03 98 H 99 02/06/25 16:00 16 02/06/25 16:00 16 02/06/25 15:58 93 H 99 02/06/25 15:55 93 H 109/63 02/06/25 15:53 96 H 99 02/06/25 15:48 94 H 99 02/06/25 15:43 94 H 97 02/06/25 15:38 93 H 100 02/06/25 15:35 16 02/06/25 15:35 37.0 C 16 02/06/25 15:33 106 H 98 02/06/25 15:28 88 99 02/06/25 15:25 90 106/58 L 02/06/25 15:23 88 99 02/06/25 15:18 91 H 100 02/06/25 15:13 84 100 02/06/25 15:10 88 115/59 L Pain Intensity Lower Back: Pain Intensity: 0 Transfer of Care Handoff Completed per policy Notes Mental Status: alert / awake / arousable and participated in evaluation Patient Amnestic to Procedure: Yes Nausea / Vomiting: adequately controlled Pain: adequately controlled Airway Patency, RR, SpO2: stable & adequate BP & HR: stable & adequate Hydration State: stable & adequate Anesthetic Complications: no major complications apparent and Pt Satisfied with anesthetic care
[2025-02-07] MEDS: OXYTOCIN 20 UNITS/LR 1,002 ML IV SCH (15:22)
[2025-02-07] MEDS ORDERED: HYDROCORTISONE ACETATE 25 MG SUPP PR PRN (16:41)
[2025-02-07] MEDS ORDERED: BENZOCAINE 20% SPRY 85 APPLN/85 GM CAN EXT PRN (16:41)
[2025-02-07] MEDS ORDERED: SENNA 8.6 MG TAB PO PRN (16:41)
[2025-02-07] MEDS ORDERED: ZOLPIDEM TARTRATE 5 MG TAB PO PRN (16:41)
[2025-02-07] MEDS ORDERED: CALCIUM CARBONATE 500 MG CHEWABLE TAB PO PRN (16:41)
[2025-02-07] MEDS ORDERED: MAGNESIUM HYDROXIDE SUSP 30 ML UDC PO PRN (16:41)
[2025-02-07] MEDS ORDERED: PROMETHAZINE 12.5 MG/50.5 ML BAG IV PRN (16:41)
[2025-02-07] MEDS: DIPHTHER/TETAN/PERTUS Vaccine (Tdap, Adol/Adult) 0.5mL IM ONE (17:19)
[2025-02-07] MEDS ORDERED: MoRPHine SULFATE 4 MG/ML 1 ML CARP\\VIAL IV PRN (17:35)
[2025-02-07] MEDS ORDERED: HYDROmorphone INJ 0.5 MG/0.5 ML SYR IV PRN (17:35)
[2025-02-07] MEDS ORDERED: LACTATED RINGER'S 500 ML IV PRN (17:35)
[2025-02-07] MEDS ORDERED: PROMETHAZINE 6.25 MG/50.25 ML BAG IV PRN (17:35)
[2025-02-07] MEDS ORDERED: MoRPHine SULFATE PF 1 MG/ML 10 ML AMP/VIAL EPI ONE (17:35)
[2025-02-07] MEDS ORDERED: SODIUM CHLORIDE 0.9% 1,000 ML IV SCH (17:45)
[2025-02-07] MEDS ORDERED: DC INTRASPINAL MORPHINE SCH (17:45)
[2025-02-07] MEDS ORDERED: NO NARCOTICS OR SEDATIVES SCH (17:45)
[2025-02-07] MEDS: SIMETHICONE 80 MG CHEW PO SCH (21:22)
[2025-02-07] MEDS: DOCUSATE SODIUM 100 MG CAP PO SCH (21:22)
[2025-02-07] MEDS: KETOROLAC 30 MG/ML VIAL IV SCH (21:23)
[2025-02-07] MEDS: ACETAMINOPHEN 325 MG TAB PO SCH (21:23)
[2025-02-08] MEDS: NALOXONE HCL 0.08 MG in SYRINGE 1.8 ML IV PRN (06:14)
[2025-02-08 06:18] LABS: Hematocrit (blood only) 30.8 % (37.0-47.0); Hemoglobin 10.1 g/dl (12.0-16.0); Immature Granulocytes # (auto) 0.12 K/uL (0.01-0.20); Immature Granulocytes % (auto) 0.6 %; Mean Corpuscular Hemoglobin 27.9 pg (25.0-34.0); Mean Corpuscular Volume 85.1 fL (80.0-100.0); Platelet Count 249 K/uL (130-400); RDW Standard Deviation 40.5 fL (36.4-46.3); Red Blood Count 3.62 M/uL (4.20-5.40); White Blood Count 19.95 K/ul (4.8-10.8)
--- NOTE | 2025-02-08 06:51 | Obstetrical Progress Note ---
Date of Service February 08, 2025 Assessment & Plan (1) care and examination: Plan: 39yo post-op day 1 s/p section Continue post- care Encourage ambulation and Pain controlled Vitals and Hgb stable Straight cath if unable to void on own Admission and Anticipated Discharge Date Admission Date: February 06, 2025 Supervising Physician Co-Signing Physician Notes Resident Physician Supervision Note: I was present with Dr. Rai during the history and exam. I discussed the case with the resident and agree with the findings and plan as documented in the note. Any exceptions or clarifications are listed here: stable doing well, eating, ambulating, +flatus but unable to void thus far, straight cath planned. abd soft ff 2 down nt, incision c/d/i, ext nt calves. pod#1 s/p c/s doing well, will see how voiding goes today. hgb stable. routine care. rhpos, ri, . Documented By: Sabi Ventura MD, FACOG Subjective 39yo post-op day 1 s/p section Ambulation: Ambulating normally Voidinhrs since catheter was removed without voiding on own, s/p narcan x2 Passing Gas: Yes Diet Tolerance: regular diet Lochia:: Moderate Feeding Type:: Current Pain Level: 4/10 controlled with Tylenol, Toradol Resting comfortably this AM in NAD. Denies GARAY, CP, SOB, N/V/D, LE pain/swelling. Physical Exam Physical Exam: General: patient resting comfortably, NAD, non-toxic in appearance, answers questions appropriately Skin: warm, dry, intact Heart: S1/S2 heard, regular, no m/r/g Lungs: equal air entry bilaterally, no rales/rhonchi/wheezes Abd: Normoactive BS, soft, NT/ND, uterine fundus firm below umbilicus, incision clean, dry, and intact Ext: warm, no clubbing/cyanosis or edema, Poly's neg Neuro: nonfocal, patient AAOx4, speech intact, no facial droop, moving all extremities on command Results & Data Vital Signs (Past 12 Hours) Vital Signs Temp Pulse Resp BP Pulse Ox O2 Del Method 02/08/25 05:00 16 95 02/08/25 04:00 15 94 02/08/25 04:00 36.8 C 71 15 97/61 L 94 Room Air 02/08/25 03:15 16 95 02/08/25 00:25 15 96 02/07/25 22:52 36.8 C 75 18 101/64 94 Room Air 02/07/25 21:00 16 97 02/07/25 20:00 36.7 C 88 16 108/67 96 Room Air 02/07/25 20:00 18 96 02/07/25 19:00 18 96 Resident Activity Tracking Resident Involvement: Resident Care Provided Care Provided: OB Delivery
[2025-02-08] MEDS: FERROUS SULFATE 325 MG TAB PO SCH (07:40)
[2025-02-08] MEDS: PRENATAL VITAMIN 1 TAB PO SCH (07:40)
[2025-02-08] MEDS ORDERED: HYDROmorphone INJ 0.5 MG/0.5 ML SYR IV PRN (08:36)
[2025-02-08] MEDS ORDERED: diphenhydrAMINE 50 MG/ML VIAL IV PRN (08:36)
[2025-02-08] MEDS ORDERED: ONDANSETRON INJ 2 MG/ML 2 ML VIAL IV PRN (08:36)
[2025-02-08] MEDS ORDERED: diphenhydrAMINE Capsule 25 MG CAP PO PRN (08:36)
[2025-02-08] MEDS ORDERED: KETOROLAC 30 MG/ML VIAL IV PRN (15:00)
[2025-02-08] MEDS: IBUPROFEN 600 MG TAB PO SCH (15:11)
[2025-02-09 06:06] LABS: Hematocrit (blood only) 30.8 % (37.0-47.0); Hemoglobin 10.3 g/dl (12.0-16.0)
--- NOTE | 2025-02-09 06:20 | Obstetrical Progress Note ---
Date of Service February 09, 2025 Assessment & Plan (1) care and examination: Plan: 39yo post-op day 2 s/p section Continue post- care Encourage ambulation and Pain controlled Vitals and Hb stable Rh+, Rubella immune Stay another night to ensure goes well Hopeful D/c tomorrow Admission and Anticipated Discharge Date Admission Date: February 06, 2025 Supervising Physician Co-Signing Physician Notes Resident Physician Supervision Note: I was present with Dr. Rai during the history and exam. I discussed the case with the resident and agree with the findings and plan as documented in the note. Any exceptions or clarifications are listed here: POD#2 doing well, needed straight cath yesterday - but is able to void well since then. Tr LE edema (bilateral), discussed PO fluids and ambulation today. Anticipate DC home tomorrow. Documented By: Nara Power, DO Subjective 39yo post-op day 2 s/p section Ambulation: Ambulating normally Voiding: no voiding problems Passing Gas: Yes Diet Tolerance: regular diet Lochia:: small Feeding Type:: Current Pain Level: 0/10 controlled with Tylenol, Ibuprofen Resting comfortably this AM in NAD. Denies GARAY, CP, SOB, N/V/D, LE pain/swelling. Physical Exam Physical Exam: General: patient resting comfortably, NAD, non-toxic in appearance, answers questions appropriately Skin: warm, dry, intact Heart: S1/S2 heard, regular, no m/r/g Lungs: equal air entry bilaterally, no rales/rhonchi/wheezes Abd: Normoactive BS, soft, NT/ND, uterine fundus firm below umbilicus, incision clean, dry, and intact Ext: warm, no clubbing/cyanosis or edema, Poly's neg Neuro: nonfocal, patient AAOx4, speech intact, no facial droop, moving all extremities on command Results & Data Vital Signs (Past 12 Hours) Vital Signs Temp Pulse Resp BP Pulse Ox O2 Del Method 02/09/25 03:28 36.7 C 73 18 119/79 97 Room Air 02/08/25 20:50 36.8 C 80 18 110/72 95 Room Air Resident Activity Tracking Resident Involvement: Resident Care Provided Care Provided: OB Delivery
[2025-02-09] MEDS: IBUPROFEN 600 MG TAB PO PRN (15:38)
[2025-02-09] MEDS: ACETAMINOPHEN 325 MG TAB PO PRN (21:10)
[2025-02-09 23:20] VITALS: TEMP 98.1
[2025-02-10 01:22] VITALS: O2SAT 97
--- NOTE | 2025-02-10 06:29 | Obstetrical Progress Note ---
Date of Service February 10, 2025 Assessment & Plan (1) care and examination: Plan: 39yo post-op day 3 s/p section Continue post- care Encourage ambulation and Pain control Vitals stable D/c today, follow with OB provider in 6 weeks Admission and Anticipated Discharge Date Admission Date: February 06, 2025 Supervising Physician Co-Signing Physician Notes Resident Physician Supervision Note: I interviewed and examined the patient. Discussed with Dr. Rai and agree with findings and plan as documented in the note. Any exceptions or clarifications are listed here: [ ] Documented By: Shayla Frankel MD, FACOG, MSCP Subjective 39yo post-op day 3 s/p section Ambulation: Ambulating normally Voiding: no voiding problems Passing Gas: Yes Diet Tolerance: regular diet Lochia:: small Feeding Type:: Current Pain Level: 7/10 controlled with Tylenol, Ibuprofen, Oxycodone Resting comfortably this AM in NAD. Denies GARAY, CP, SOB, N/V/D, LE pain/swelling. Physical Exam Physical Exam: General: patient resting comfortably, NAD, non-toxic in appearance, answers questions appropriately Skin: warm, dry, intact Heart: S1/S2 heard, regular, no m/r/g Lungs: equal air entry bilaterally, no rales/rhonchi/wheezes Abd: Normoactive BS, soft, NT/ND, uterine fundus firm below umbilicus, incision clean, dry, and intact Ext: warm, no clubbing/cyanosis, 1+ edema, Poly's neg Neuro: nonfocal, patient AAOx4, speech intact, no facial droop, moving all extre mities on command Results & Data Vital Signs (Past 12 Hours) Vital Signs Temp Pulse Resp BP Pulse Ox O2 Del Method 02/09/25 23:15 36.7 C 76 18 122/78 97 Room Air 02/09/25 20:20 36.7 C 73 20 134/84 96 Room Air Resident Activity Tracking Resident Involvement: Resident Care Provided Care Provided: OB Delivery
[2025-02-10 08:16] VITALS: BP 125/82; PULSE 73; RESP 16
--- NOTE | 2025-02-11 16:20 | Discharge Summary ---
Date of Service February 11, 2025 Admission HPI Per Admitting Provider 39yo at term with prom and then early labor, admitted this am by my colleague. She continues with clear fluid leak and ctx q3-5min and did receive epidural. Comfortable now. PNC c/b GDM on insulin, AMA PNL rhpos, ri, gbs neg. OBH: g1 GYNH: nl paps no stds Discharge Data Consultations 02/06/25 08:17 Consult Anesthesiology Stat Procedures Performed Operation Date: 02/07/25 13:10 Actual Procedures p Primary Low Transverse Section in LD for delivery of live male child at 1347 - Sabi Ventura MD, [facility] Course (1) care and examination: Plan The patient underwent the above stated procedure without incident due to failure to progress in labor and her postoperative course and recovery was uncomplicated. On her postoperative day #3 she was tolerating a regular diet, voiding spontaneously, ambulating without problem and was using oral meds for adequate pain control. Her postoperative hemoglobin was 10.3 . She was given written and verbal discharge instructions and told to followup in office at 6wks. She was given appropriate pain medicine prescriptions. Coding Level of Care Code None Diagnoses care and examination Z39.2
== END 2025-02-10 10:45 | disposition home or self-care (01) | DRG 788 ==
LOC: OPB 07:21 → 4S1 07:24 → 4E2 02-07 17:19
DX: Z37.0 Single live birth; Z79.4 Long term (current) use of insulin; Z3A.38 38 weeks gestation of pregnancy; O62.0 Primary inadequate contractions; Z88.8 Allergy status to other drugs, medicaments and biological substances; Z87.891 Personal history of nicotine dependence; O24.414 Gestational diabetes mellitus in pregnancy, insulin controlled; O42.02 Full-term premature rupture of membranes, onset of labor within 24 hours of rupture